=== PATIENT | female | born 1960 | race Two or more races ===

== ENCOUNTER 2020-04-01 13:59 | Outpatient (REF) | payer MEDICAID, SELFPAY ==
[2020-04-01 14:53] LABS: MANUAL DIFF FLAG NO
[2020-04-01 15:00] LABS: Basophils Percent Auto 0.5 % (0-2); Eosinophils Absolute Auto 0.3 X10*3/uL (0.0-0.4); Eosinophils Percent Auto 3.5 % (0-4); Hematocrit 48.1 % (37-47); Hemoglobin 15.5 g/dl (12.0-16.0); Imm Gran Abs Auto 0.03 X10*3/uL (0.00-0.03); Imm Gran Pct Auto 0.4 % (0.0-0.4); Lymphocytes Absolute Auto 2.9 X10*3/uL (1.2-4.9); Lymphocytes Percent Auto 35.2 % (20-40); Mean Corpuscular HGB Conc 32.2 g/dl (31.0-35.0); Mean Platelet Volume 11.2 fL (9.4-12.3); Monocytes Absolute Auto 0.4 X10*3/uL (0.1-1.2); Monocytes Percent Auto 4.7 % (2-11); Neutrophils Absolute Auto 4.6 X10*3/uL (2.0-8.3); Neutrophils Percent Auto 55.7 % (45-73); Platelet Count 266 X10*3/uL (160-400); Red Blood Count 5.17 X10*6/uL (4.20-5.50); Red Cell Distribution Width 12.6 % (11.0-16.0); White Blood Count 8.2 X10*3/uL (4.8-10.8)
[2020-04-01 15:26] LABS: Alanine Aminotransferase 20 U/L (0-31); Albumin Level 4.6 g/dL (3.5-5.0); Alkaline Phosphatase 97 U/L (39-117); Anion Gap 14 (12-20); Aspartate Amino Transferase 16 U/L (5-31); Bilirubin Total 0.7 mg/dL (0.0-1.0); Blood Urea Nitrogen 9 mg/dL (9-16); Calcium 9.4 mg/dL (8.4-10.2); Carbon Dioxide 25 mmol/L (22-29); Chloride 107 mmol/L (96-108); Cholesterol 116 mg/dL; Estimated Glomerular Filt Rate > 60; Glucose Random 98 mg/dL (60-115); Potassium 4.6 mmol/l (3.3-5.1); Sodium 141 mmol/L (135-145); Total Protein 7.4 g/dL (6.5-8.0)
[2020-04-01 15:46] LABS: Vitamin D 25-OH Total 12.7 ng/mL (>30)
== END 2020-04-01 14:00 | disposition home or self-care (01) ==
LOC: HO.LAB 13:59
PROVIDERS: PCP Internal Medicine; Visit Provider Internal Medicine
DX: E55.9 Vitamin D deficiency, unspecified (principal); K55.9 Vascular disorder of intestine, unspecified; M81.0 Age-related osteoporosis without current pathological fracture
CPT/HCPCS: 36415; 80053; 82306; 82465; 85025

== ENCOUNTER 2020-04-22 14:43 | Outpatient (REF) | payer MEDICAID, SELFPAY | END 2020-04-22 14:44 | disposition home or self-care (01) | LOC: HO.LNP 14:43 | PROVIDERS: Visit Provider Internal Medicine | DX: Z20.828 Contact with and (suspected) exposure to other viral communicable diseases (principal) | CPT/HCPCS: U0003 ==

== ENCOUNTER 2020-06-16 12:48 | Outpatient (REF) | payer MEDICAID, SELFPAY ==
--- NOTE | 2020-06-16 13:55 | XR_ITS ---
EXAMINATION: XR HIP, RIGHT CLINICAL INFORMATION: Right hip pain. COMPARISON: Pelvic study of 12/20/2017 and 06/06/2013. TECHNIQUE: 2 views of the right hip. FINDINGS: There is no evidence of acute fracture or dislocation of the right hip. There are again noted to be collar spurs as well as some joint space narrowing inferiorly and to a lesser extent superiorly. No femoral head collapse is seen. No destructive bony lesions noted. XR/XR hip RT min 2V IMPRESSION: Stable degenerative change of the right hip as described.
== END 2020-06-16 12:49 | disposition home or self-care (01) ==
LOC: HO.XRAY 12:48
PROVIDERS: PCP Internal Medicine; Visit Provider Nurse Practitioner Family
DX: M16.11 Unilateral primary osteoarthritis, right hip (principal); M25.551 Pain in right hip; M79.18 Myalgia, other site; M54.16 Radiculopathy, lumbar region
CPT/HCPCS: 73502; 99212

== ENCOUNTER 2020-07-06 07:56 | Outpatient (REF) | payer MEDICAID, SELFPAY ==
--- NOTE | 2020-07-06 08:02 | FL_ITS ---
EXAMINATION: XR FLUOROSCOPY WITH IMAGES CLINICAL INFORMATION: Sacroiliitis TECHNIQUE: Fluoroscopy time: 0.1 minutes DAP: 1.29 Gycm2 Images: 1 FINDINGS: A single intraoperative fluoroscopic image is submitted during injection of the right sacroiliac joint. Correlation with operative report. Evaluation is limited secondary to fluoroscopic technique. FL/FL guidance in treatment room IMPRESSION: Intra-operative fluoroscopic imaging provided by radiology during right sacroiliac joint injection. Please refer to operative note for further information.
== END 2020-07-06 07:57 | disposition home or self-care (01) ==
LOC: HO.RADIR 07:56
PROVIDERS: Visit Provider Anesthesiology
DX: M46.1 Sacroiliitis, not elsewhere classified (principal)
CPT/HCPCS: 27096; J3300; Q9967

== ENCOUNTER → 2020-08-09 10:03 | Outpatient (BNVA) | payer MEDICAID, SELFPAY | PROVIDERS: PCP Internal Medicine; Visit Provider Nurse Practitioner Family | DX: M16.11 Unilateral primary osteoarthritis, right hip (principal); M54.16 Radiculopathy, lumbar region; Z79.899 Other long term (current) drug therapy | CPT/HCPCS: 99212 ==

== ENCOUNTER 2020-08-17 15:36 | Outpatient (REF) | payer MEDICAID, SELFPAY ==
--- NOTE | ~2020-08-17 | MR_ITS ---
EXAMINATION: MR LUMBAR SPINE WITHOUT CONTRAST CLINICAL INFORMATION: Left shoulder pain, bilateral toe and right leg pain with symptoms for 6 years. COMPARISON: Lumbar spine x-ray 07/21/2016. TECHNIQUE: MRI of the lumbar spine was obtained using routine sequences without contrast. FINDINGS: There is normal lumbar lordosis. The vertebral heights, alignment and the disc heights are normal. The disc signal is preserved. There is no evidence of disc bulge, herniation or small stenosis at any of the disc levels. The neural foramina are patent at all disc levels. The bone marrow signal, intraspinal signal and paravertebral soft tissues are normal. There are ventral bridging osteophytes at L2-L3 and L4-L5 disc levels as visualized on the previous lumbar spine x-ray. Conus medullaris terminates at T12-L1 disc level and appears normal in morphology. Incidental finding of small 7 mm cyst midpole left kidney. MR/MR lumbar spine wo con IMPRESSION: No evidence of disc bulge, herniation or spinal stenosis. Mild ventral spondylosis L2-L3 and L4-L5 disc levels.
== END 2020-08-17 15:37 | disposition home or self-care (01) ==
LOC: HO.MRI 15:36
PROVIDERS: Visit Provider Anesthesiology
DX: M54.16 Radiculopathy, lumbar region (principal)
CPT/HCPCS: 72148

== ENCOUNTER → 2020-08-30 08:01 | Outpatient (BNVA) | payer MEDICAID, SELFPAY | PROVIDERS: PCP Internal Medicine; Visit Provider Nurse Practitioner Family | DX: M16.11 Unilateral primary osteoarthritis, right hip (principal); M54.16 Radiculopathy, lumbar region | CPT/HCPCS: 99212 ==

== ENCOUNTER 2020-09-14 06:29 | Outpatient (REF) | payer MEDICAID, SELFPAY ==
--- NOTE | ~2020-09-14 | FL_ITS ---
EXAMINATION: XR FLUOROSCOPY WITH IMAGES CLINICAL INFORMATION: M47.816 - Spondylosis without myelopathy or radiculopathy. Degenerative changes hips. COMPARISON: Radiograph pelvis 12/20/2017 TECHNIQUE: Fluoroscopy performed by Lo Steinberg NP. Fluoroscopy time: 0.2 minutes DAP: 1.76 Gycm2 Images: 1 FINDINGS: There is spinal needle overlying the superolateral aspect hip joint. There is intracapsular contrast demonstrated. FL/FL guidance in treatment room IMPRESSION: Fluoroscopy for pain management procedure.
== END 2020-09-14 06:30 | disposition home or self-care (01) ==
LOC: HO.RADIR 06:29
PROVIDERS: Visit Provider Anesthesiology
DX: M16.11 Unilateral primary osteoarthritis, right hip (principal); M47.816 Spondylosis without myelopathy or radiculopathy, lumbar region
CPT/HCPCS: 20610; 64493; 64494; 64495; J3300; Q9967

== ENCOUNTER → 2020-09-21 10:50 | Outpatient (BNVA) | payer MEDICAID, SELFPAY | PROVIDERS: PCP Internal Medicine; Visit Provider Nurse Practitioner Family | DX: M16.11 Unilateral primary osteoarthritis, right hip (principal); M54.16 Radiculopathy, lumbar region; M47.816 Spondylosis without myelopathy or radiculopathy, lumbar region | CPT/HCPCS: 99212 ==

== ENCOUNTER 2020-10-12 15:02 | Outpatient (REF) | payer MEDICAID, SELFPAY ==
--- NOTE | ~2020-10-12 | MM_ITS ---
EXAMINATION: MM SCREENING DIGITAL BREAST TOMOSYNTHESIS, BILATERAL CLINICAL INFORMATION: Screening. Asymptomatic. Benign right stereotactic biopsy 05/12/2014 (adenosis with numerous microcalcifications). The lifetime risk of breast cancer based on the Tyrer-Cuzick Model is 5%. COMPARISON: Mammography: 09/02/2018, 08/24/2017, 06/30/2016 TECHNIQUE: Digital breast tomosynthesis is performed in both the craniocaudal and mediolateral oblique views along with computer-aided detection (CAD). Synthesized 2D images are generated from the tomosynthesis. FINDINGS: There are scattered areas of fibroglandular density (ACR BI-RADS breast composition Category b). There are no significant masses, abnormal calcifications, or other abnormalities. There is biopsy clip marker right breast mid upper outer quadrant. The axilla and skin contours are unremarkable. MM/MM tomosynthesis screening BI IMPRESSION: No mammographic evidence of malignancy. ASSESSMENT: BI-RADS 1: Negative RECOMMENDATION: Routine annual mammography screening. This patient's information was entered into a reminder system with a target due date for their next mammogram.
== END 2020-10-12 15:03 | disposition home or self-care (01) ==
LOC: HO.MAMMO 15:02
PROVIDERS: PCP Internal Medicine; Visit Provider Internal Medicine
DX: Z12.31 Encounter for screening mammogram for malignant neoplasm of breast (principal)
CPT/HCPCS: 77063; 77067

== ENCOUNTER 2020-10-26 06:17 | Outpatient (REF) | payer MEDICAID, SELFPAY ==
--- NOTE | ~2020-10-26 | FL_ITS ---
EXAMINATION: XR FLUOROSCOPY WITH IMAGES CLINICAL INFORMATION: Spondylosis with myelopathy or radiculopathy. COMPARISON: Lumbar spine MRI dated 08/17/2020. TECHNIQUE: Fluoroscopy performed by Lo Steinberg. Fluoroscopy time: 0.8 minutes DAP: 7.15 Gycm2 FINDINGS: Intraoperative fluoroscopic images demonstrate perineural injections. FL/FL guidance in treatment room IMPRESSION: Intraoperative fluoroscopic radiographs.
== END 2020-10-26 06:18 | disposition home or self-care (01) ==
LOC: HO.RADIR 06:17
PROVIDERS: Visit Provider Anesthesiology
DX: M47.816 Spondylosis without myelopathy or radiculopathy, lumbar region (principal); M16.11 Unilateral primary osteoarthritis, right hip; M54.16 Radiculopathy, lumbar region
CPT/HCPCS: 64493; 64494; 64495; Q9967

== ENCOUNTER → 2020-11-02 13:25 | Outpatient (BNVA) | payer MEDICAID, SELFPAY | PROVIDERS: PCP Internal Medicine; Visit Provider Nurse Practitioner Family | CPT/HCPCS: 99212 ==

== ENCOUNTER 2020-11-05 12:02 | Outpatient (REF) | payer MEDICAID, SELFPAY ==
[2020-11-05 12:41] LABS: MANUAL DIFF FLAG NO
[2020-11-05 12:58] LABS: Basophils Absolute Auto 0.1 X10*3/uL (0.0-0.2); Basophils Percent Auto 0.5 % (0-2); Eosinophils Absolute Auto 0.3 X10*3/uL (0.0-0.4); Eosinophils Percent Auto 3.3 % (0-4); Hematocrit 44.8 % (37-47); Hemoglobin 14.4 g/dl (12.0-16.0); Imm Gran Abs Auto 0.03 X10*3/uL (0.00-0.03); Imm Gran Pct Auto 0.3 % (0.0-0.4); Lymphocytes Absolute Auto 3.5 X10*3/uL (1.2-4.9); Lymphocytes Percent Auto 38.1 % (20-40); Mean Corpuscular HGB Conc 32.1 g/dl (31.0-35.0); Mean Corpuscular Hemoglobin 29.8 pg (27.0-33.0); Mean Corpuscular Volume 92.6 fL (80-98); Mean Platelet Volume 10.9 fL (9.4-12.3); Monocytes Absolute Auto 0.4 X10*3/uL (0.1-1.2); Monocytes Percent Auto 4.8 % (2-11); Neutrophils Absolute Auto 4.8 X10*3/uL (2.0-8.3); Platelet Count 264 X10*3/uL (160-400); Red Blood Count 4.84 X10*6/uL (4.20-5.50); Red Cell Distribution Width 12.8 % (11.0-16.0); White Blood Count 9.1 X10*3/uL (4.8-10.8)
[2020-11-05 13:29] LABS: Anion Gap 13 (12-20); Blood Urea Nitrogen 11 mg/dL (9-16); C Reactive Protein 0.27 mg/dL (< or = 0.50); Calcium 9.5 mg/dL (8.4-10.2); Carbon Dioxide 26 mmol/L (22-29); Chloride 109 mmol/L (96-108); Estimated Glomerular Filt Rate > 60; Glucose Random 92 mg/dL (60-115); Potassium 4.7 mmol/L (3.3-5.1); Sodium 143 mmol/L (135-145)
== END 2020-11-05 12:03 | disposition home or self-care (01) ==
LOC: HO.LAB 12:02
PROVIDERS: PCP Internal Medicine; Visit Provider Internal Medicine
DX: M54.9 Dorsalgia, unspecified (principal); M16.11 Unilateral primary osteoarthritis, right hip; M85.80 Other specified disorders of bone density and structure, unspecified site
CPT/HCPCS: 36415; 80048; 85025; 86140

== ENCOUNTER 2020-11-08 11:08 | Outpatient (REF) | payer MEDICAID, SELFPAY ==
[2020-11-08 13:53] LABS: Amylase 38 U/L (28-100)
== END 2020-11-08 11:09 | disposition home or self-care (01) ==
LOC: HO.10HDL 11:08
PROVIDERS: Visit Provider Internal Medicine
DX: M79.605 Pain in left leg (principal)
CPT/HCPCS: 36415; 82150

== ENCOUNTER → 2020-12-31 15:15 | Outpatient (BNVA) | payer MEDICAID, SELFPAY | PROVIDERS: PCP Internal Medicine; Visit Provider Nurse Practitioner Family | DX: M47.816 Spondylosis without myelopathy or radiculopathy, lumbar region (principal); M46.1 Sacroiliitis, not elsewhere classified; M16.11 Unilateral primary osteoarthritis, right hip; M79.18 Myalgia, other site | CPT/HCPCS: 99212 ==

== ENCOUNTER 2021-03-08 06:26 | Outpatient (REF) | payer MEDICAID, SELFPAY ==
--- NOTE | ~2021-03-08 | FL_ITS ---
EXAMINATION: XR FLUOROSCOPY WITH IMAGES CLINICAL INFORMATION: Spondylosis without myelopathy or radiculopathy COMPARISON: None. TECHNIQUE: Fluoroscopy performed by Lo Steinberg NP. Fluoroscopy time: 0.7 minutes DAP: 4.7 Gycm2 Images: 8 FINDINGS: Images demonstrate needle placement and contrast injection adjacent to multiple bilateral lateral lumbar vertebral bodies. FL/FL guidance in treatment room IMPRESSION: Fluoroscopy guidance provided for pain management procedure of the spine.
== END 2021-03-08 06:27 | disposition home or self-care (01) ==
LOC: HO.RADIR 06:26
PROVIDERS: Visit Provider Anesthesiology
DX: M47.816 Spondylosis without myelopathy or radiculopathy, lumbar region (principal); M46.1 Sacroiliitis, not elsewhere classified; M16.11 Unilateral primary osteoarthritis, right hip; M79.18 Myalgia, other site
CPT/HCPCS: 64493; 64494; J3300; Q9967

== ENCOUNTER → 2021-04-13 10:59 | Outpatient (BNVA) | payer MEDICAID, SELFPAY | PROVIDERS: PCP Internal Medicine; Visit Provider Anesthesiology | DX: M47.816 Spondylosis without myelopathy or radiculopathy, lumbar region (principal); M46.1 Sacroiliitis, not elsewhere classified; M16.11 Unilateral primary osteoarthritis, right hip; M79.18 Myalgia, other site; M47.26 Other spondylosis with radiculopathy, lumbar region | CPT/HCPCS: 99212 ==

== ENCOUNTER 2021-05-31 05:59 | Outpatient (REF) | payer MEDICAID, SELFPAY ==
--- NOTE | ~2021-05-31 | FL_ITS ---
EXAMINATION: XR FLUOROSCOPY WITH IMAGES CLINICAL INFORMATION: M54.16 - Radiculopathy, lumbar region COMPARISON: Fluoroscopic spot views 03/08/2021 TECHNIQUE: Fluoroscopy performed by Dr. Johnson Ochoa. Fluoroscopy time: 0.3 minutes DAP: 2.38 Gycm2 Images: 2 FINDINGS: There are spinal needles overlying the outer right L3 and L4 neural foramen. There is contrast seen in the respective nerve sheaths. Transforaminal epidural extension is present. No visible vascular communication. There is metallic artifact again seen from a naval piercing overlying the spine. FL/FL guidance in treatment room IMPRESSION: Fluoroscopy for pain management procedures.
== END 2021-05-31 06:00 | disposition home or self-care (01) ==
LOC: HO.RADIR 05:59
PROVIDERS: Visit Provider Anesthesiology
DX: M47.26 Other spondylosis with radiculopathy, lumbar region (principal); M46.1 Sacroiliitis, not elsewhere classified; Z88.6 Allergy status to analgesic agent; M16.11 Unilateral primary osteoarthritis, right hip
CPT/HCPCS: J3300; Q9967

== ENCOUNTER → 2021-06-29 14:39 | Outpatient (BNVA) | payer MEDICAID, SELFPAY | PROVIDERS: PCP Internal Medicine; Visit Provider Anesthesiology | DX: M47.816 Spondylosis without myelopathy or radiculopathy, lumbar region (principal); M46.1 Sacroiliitis, not elsewhere classified; M16.11 Unilateral primary osteoarthritis, right hip; M79.18 Myalgia, other site; M47.26 Other spondylosis with radiculopathy, lumbar region | CPT/HCPCS: 99212 ==

== ENCOUNTER 2021-10-14 09:21 | Outpatient (REF) | payer MEDICAID, SELFPAY ==
--- NOTE | ~2021-10-14 | MM_ITS ---
EXAMINATION: MM SCREENING DIGITAL BREAST TOMOSYNTHESIS, BILATERAL CLINICAL INFORMATION: Screening. Asymptomatic. The lifetime risk of breast cancer based on the Tyrer-Cuzick Model is 6%. COMPARISON: Mammography: 10/12/2020, 09/02/2018, 08/24/2017 TECHNIQUE: Digital breast tomosynthesis is performed in both the craniocaudal and mediolateral oblique views along with computer-aided detection (CAD). Synthesized 2D images are generated from the tomosynthesis. FINDINGS: There are scattered areas of fibroglandular density (ACR BI-RADS breast composition Category b). There are no significant masses, abnormal calcifications, or other abnormalities. There is biopsy clip marker right breast mid upper outer quadrant again noted. The axilla and skin contours are unremarkable. There are no significant changes. MM/MM tomosynthesis screening BI IMPRESSION: No mammographic evidence of malignancy. ASSESSMENT: BI-RADS 1: Negative RECOMMENDATION: Routine annual mammography screening. This patient's information was entered into a reminder system with a target due date for their next mammogram.
== END 2021-10-14 09:22 | disposition home or self-care (01) ==
LOC: HO.MAMMO 09:21
PROVIDERS: PCP Internal Medicine; Visit Provider Internal Medicine
DX: Z12.31 Encounter for screening mammogram for malignant neoplasm of breast (principal)
CPT/HCPCS: 77063; 77067

== ENCOUNTER 2021-10-28 06:07 | Outpatient (REF) | payer MEDICAID, SELFPAY ==
--- NOTE | ~2021-10-28 | FL_ITS ---
EXAMINATION: XR FLUOROSCOPY WITH IMAGES CLINICAL INFORMATION: Spondylosis with radiculopathy. COMPARISON: None. TECHNIQUE: Fluoroscopy performed by Lo Steinberg. Fluoroscopy time: 0.5 minutes DAP: 0.973 Gy-cm2 Images: 5 FINDINGS: There are 5 digital images obtained with needle positioned inferior to right L3 and L4 pedicles with contrast opacifying the adjacent soft tissues. Visualized vertebral heights, alignment and disc heights are normal. FL/FL guidance in treatment room IMPRESSION: Fluoroscopy guidance was provided to the referrer for pain management.
== END 2021-10-28 06:08 | disposition home or self-care (01) ==
LOC: HO.RADIR 06:07
PROVIDERS: Visit Provider Internal Medicine
DX: M47.26 Other spondylosis with radiculopathy, lumbar region (principal)
CPT/HCPCS: 64483; 64484; J1100; Q9967

== ENCOUNTER → 2021-11-28 08:17 | Outpatient (BNVA) | payer MEDICAID, SELFPAY | PROVIDERS: PCP Internal Medicine; Visit Provider Anesthesiology | DX: M47.26 Other spondylosis with radiculopathy, lumbar region (principal); M46.1 Sacroiliitis, not elsewhere classified; M16.11 Unilateral primary osteoarthritis, right hip; M79.18 Myalgia, other site | CPT/HCPCS: 99212 ==

== ENCOUNTER 2022-05-04 10:36 | Outpatient (REF) | payer MEDICAID, SELFPAY ==
[2022-05-04 11:44] LABS: Influenza A PCR NEGATIVE (Negative); Influenza B PCR NEGATIVE (Negative); Resp Syncy Virus RNA Qual PCR NEGATIVE (Negative); SARS COV2 PCR INHOUSE NEGATIVE (Negative)
== END 2022-05-04 10:37 | disposition home or self-care (01) ==
LOC: HO.LNP 10:36
PROVIDERS: Visit Provider Internal Medicine
DX: Z20.822 Contact with and (suspected) exposure to COVID-19 (principal); R51.9 Headache, unspecified; R06.7 Sneezing
CPT/HCPCS: 0241U

== ENCOUNTER 2022-10-20 09:26 | Outpatient (REF) | payer MEDICAID, SELFPAY ==
--- NOTE | ~2022-10-20 | MM_ITS ---
EXAMINATION: MM SCREENING DIGITAL BREAST TOMOSYNTHESIS, BILATERAL CLINICAL INFORMATION: Screening. Asymptomatic. The lifetime risk of breast cancer based on the Tyrer-Cuzick Model is 6%. COMPARISON: Mammography: 10/14/2021, 10/12/2020, 09/02/2018 TECHNIQUE: Digital breast tomosynthesis is performed in both the craniocaudal and mediolateral oblique views along with computer-aided detection (CAD). Synthesized 2D images are generated from the tomosynthesis. Additional bilateral MLO views are provided. FINDINGS: There are scattered areas of fibroglandular density (ACR BI-RADS breast composition Category b). There are no significant masses, abnormal calcifications, or other abnormalities. Parenchymal pattern is similar to prior studies. There is no developing density or architectural abnormality. There is a biopsy clip marker again seen mid upper outer right breast. The axilla and skin contours are unremarkable. No significant changes. MM/MM tomosynthesis screening BI IMPRESSION: No mammographic evidence of malignancy. ASSESSMENT: BI-RADS 1: Negative RECOMMENDATION: Routine annual mammography screening. This patient's information was entered into a reminder system with a target due date for their next mammogram.
== END 2022-10-20 09:27 | disposition home or self-care (01) ==
LOC: HO.MAMMO 09:26
PROVIDERS: Visit Provider Internal Medicine
DX: Z12.31 Encounter for screening mammogram for malignant neoplasm of breast (principal)
CPT/HCPCS: 77063; 77067

== ENCOUNTER 2023-11-02 07:49 | Outpatient (REF) | payer MEDICAID, SELFPAY ==
--- NOTE | ~2023-11-02 | MM_ITS ---
EXAMINATION: MM SCREENING DIGITAL BREAST TOMOSYNTHESIS, BILATERAL CLINICAL INFORMATION: Screening. Asymptomatic. COMPARISON: Mammography: This study is compared with prior exams dating back to 2019. TECHNIQUE: Digital breast tomosynthesis is performed in both the craniocaudal and mediolateral oblique views along with computer-aided detection (CAD). Synthesized 2D images are generated from the tomosynthesis. FINDINGS: There are scattered areas of fibroglandular density (ACR BI-RADS breast composition Category b). There are no significant masses, abnormal calcifications, or other abnormalities. There is a tissue marker present in the upper outer quadrant of the right breast from prior benign percutaneous biopsy. MM/MM tomosynthesis screening BI IMPRESSION: No mammographic evidence of malignancy. ASSESSMENT: BI-RADS BI-RADS 2 - Benign Findings RECOMMENDATION: Routine annual mammography screening. 1 year F/U This examination should not preclude the clinical evaluation of a suspicious palpable abnormality. This patient's information was entered into a reminder system with a target due date for their next mammogram.
== END 2023-11-02 07:50 | disposition home or self-care (01) ==
LOC: HO.MAMMO 07:49
PROVIDERS: PCP Internal Medicine; Visit Provider Internal Medicine
DX: Z12.31 Encounter for screening mammogram for malignant neoplasm of breast (principal)
CPT/HCPCS: 77063; 77067

== ENCOUNTER → 2023-11-02 08:30 | Outpatient (BNV) | payer MEDICAID, SELFPAY | PROVIDERS: PCP Internal Medicine; Visit Provider Radiology Diagnostic Radiology | DX: Z12.31 Encounter for screening mammogram for malignant neoplasm of breast (principal) | CPT/HCPCS: 77063; 77067 ==

== ENCOUNTER 2023-11-07 08:18 | Outpatient (AMB) | payer MEDICAID, SELFPAY ==
--- NOTE | 2023-11-07 08:21 | MHC.OFFVIS ---
Vital Signs 11/07/23 08:27 Height 5 ft 1 in Weight 139 lb 2 oz BMI 26.3 BP 144/94 H Blood Pressure Location Rt brachial Position Sitting Respiration 16 Pulse 69 Pulse Source Pulse Oximeter Pulse Oximetry (%) 96 Oxygen Delivery Method Room Air Intake Visit Reasons: Back pain Intake Note: Patient comes in for back pain. Reports pain 8-9/10. Allergies aspirin Adverse Reaction (Verified 11/07/23 08:27) rectal bleeding HPI Comments Details: Myrtle is back in my office after significant period of absence. She received in 2021 transforaminal epidural steroid injection L3-L4 and L4-5 on the right. She is suffering from radiculopathy of the lumbar spine. This injection was very instrumental to help her pain. She reported excellent pain relief 1 month after procedure for the follow-up. She reported another 3 months of the pain relief after the therefore the total pain relief was up to 4 months. However to that she failed to schedule yet another appointment with us to schedule the injection. Now her pain is unbearable and it is 8 to 9/10. She requests me to repeat this procedure. I will schedule her as soon as possible. Prior: Very pleasant 61 years old female who is in my office under observation for significant period of time. We started her treatment here with the diagnostic MBB which was very effective for treating her pain. However following therapeutic MBB did not result in good pain relief. MRI was obtained and some minimal changes were found at L3-L4 L4-5 levels. The patient was offered in May of 2021 therapeutic transforaminal epidural steroid injection. She reported that injection done in May of 2021 resulted in prolonging continuous pain relieve until September. After the pain got returned she was scheduled for yet another transforaminal epidural steroid injection L3-L4 L4-5 on the right with Dr. Tobias. Unfortunately the patient reported minimal pain relief for 2 days only. This injection happened in October 28. She was given today an option to perform sprint procedure trial in the order to attempt to alleviate her pain. She said that this sort of approaches little bit to technical for her and she would not want to get this done. She would like to repeat L3-L4 L4-5 transforaminal epidural steroid injection on the right with me I explained to her that it is possible only after January 28. Meanwhile to temporize her pain I will start her on Celebrex moderate doses PFSH Medical History (System 05/04/21 @ 10:51 by Danica Obrien) Other spondylosis with radiculopathy, lumbar region Review of Systems Const All systems reviewed & are unremarkable except as noted in HPI and below ENT Reports Normal hearing present Neuro Reports Normal hearing present, Denies Abnormal speech present and Denies confusion Psych Denies confusion Physical Exam Vital Signs: Last Vital Signs Pulse 69 11/07/23 08:27 Resp 16 11/07/23 08:27 BP 144/94 H 11/07/23 08:27 Pulse Ox 96 11/07/23 08:27 Oxygen Delivery Method Room Air 11/07/23 08:27 BMI result Body Mass Index 26.3 Const General: cooperative, healthy appearing, no acute distress and alert; No confusion Nutritional Appearance: average body habitus Orientation/consciousness: patient oriented x3 and No confusion Limitations: no limitations HEENT Head: Yes normocephalic and Yes atraumatic Ears: hearing grossly normal bilaterally Eyes General: appearance normal, both eyes and all related structures Eyelids: Yes eyelids normal Pupils: Equal, round and reactive pupils present EOM: EOMs intact bilaterally Neck Neck: Yes normal visual inspection and Yes no JVD Resp Effort & Inspection: normal respiratory effort, able to speak in complete sentences and no audible wheezes Cardio Jugular venous distension: no JVD Back/Spine/Pelvis Other: SLR is positive on pain increase on the right. She points out to shooting pain in the location of between the 1st and 2nd toe on the right. Valsalva maneuver is positive for pain increase. Coughing and sneezing increase her pain in the back and results in shooting pain down the lower extremity on the right. Neuro General: patient oriented x3 and No confusion Cranial nerves: Yes Equal, round and reactive pupils present and Yes Normal hearing present Speech: No Abnormal speech present Assessment & Plan Assessment & Plan (1) Spondylosis of lumbar spine: Code(s): M47.816 - Spondylosis without myelopathy or radiculopathy, lumbar region Category: Medical (2) Sacroiliitis, not elsewhere classified: Code(s): M46.1 - Sacroiliitis, not elsewhere classified Category: Medical (3) Osteoarthritis of right hip: Code(s): M16.11 - Unilateral primary osteoarthritis, right hip Category: Medical Qualifiers: Osteoarthritis type: primary Qualified Code(s): M16.11 - Unilateral primary osteoarthritis, right hip (4) Myofascial pain syndrome, cervical: Code(s): M79.18 - Myalgia, other site Category: Medical (5) Other spondylosis with radiculopathy, lumbar region: Code(s): M47.26 - Other spondylosis with radiculopathy, lumbar region Category: Medical Plan I will schedule this patient for L3-L4 L4-5 transforaminal epidural steroid injection. Her initial results of the transforaminal epidural steroid injections were very promising. She had up to 1 year of pain relief on the 1st injection she had up to 4 a month of the pain relief after 2nd injection. I will schedule her for transforaminal pending insurance approval as soon as possible. She will be seen for the follow-up 1 month after the procedure. Coding Level of Care Code Est Pt Level 3 (20668) Diagnoses Spondylosis of lumbar spine M47.816 Sacroiliitis, not elsewhere classified M46.1 Primary osteoarthritis of right hip M16.11 Osteoarthritis type: primary Myofascial pain syndrome, cervical M79.18 Other spondylosis with radiculopathy, lumbar region M47.26
[2023-11-07 08:27] VITALS: BP 144/94; PULSE 69; RESP 16; O2SAT 96; BMI 26.3
== END 2023-11-07 08:39 | disposition home or self-care (01) ==
PROVIDERS: PCP Internal Medicine; Supervising Provider Internal Medicine; Visit Provider Anesthesiology
DX: M47.816 Spondylosis without myelopathy or radiculopathy, lumbar region (principal); M46.1 Sacroiliitis, not elsewhere classified; M16.11 Unilateral primary osteoarthritis, right hip; M79.18 Myalgia, other site; M47.26 Other spondylosis with radiculopathy, lumbar region
CPT/HCPCS: 99213

== ENCOUNTER → 2023-11-07 08:18 | Outpatient (BNVA) | payer MEDICAID, SELFPAY | PROVIDERS: PCP Internal Medicine; Visit Provider Anesthesiology | DX: M47.26 Other spondylosis with radiculopathy, lumbar region (principal); M46.1 Sacroiliitis, not elsewhere classified; M16.11 Unilateral primary osteoarthritis, right hip; M79.18 Myalgia, other site | CPT/HCPCS: 99212 ==

== ENCOUNTER 2023-12-18 07:23 | Outpatient (REF) | payer MEDICAID, SELFPAY | END 2023-12-18 07:24 | disposition home or self-care (01) | LOC: CF 07:23 | PROVIDERS: Visit Provider Anesthesiology | DX: M54.16 Radiculopathy, lumbar region (principal); Z53.9 Procedure and treatment not carried out, unspecified reason | CPT/HCPCS: J3301; Q9967 ==

== ENCOUNTER 2024-01-01 09:38 | Outpatient (REF) | payer MEDICAID, SELFPAY ==
[2024-01-01 11:19] LABS: C Reactive Protein 0.32 mg/dL (< or = 0.50)
[2024-01-01 11:37] LABS: Erythrocyte Sedimentation Rate 8 MM/HR (0-20)
== END 2024-01-01 09:39 | disposition home or self-care (01) ==
LOC: HO.LAB 09:38
PROVIDERS: PCP Internal Medicine; Visit Provider Registered Nurse
DX: G44.209 Tension-type headache, unspecified, not intractable (principal)
CPT/HCPCS: 36415; 85652; 86140

== ENCOUNTER 2024-04-08 06:12 | Outpatient (REF) | payer MEDICAID, SELFPAY | END 2024-04-08 06:13 | disposition home or self-care (01) | LOC: CF 06:12 | PROVIDERS: Visit Provider Anesthesiology | DX: M54.16 Radiculopathy, lumbar region (principal); M47.816 Spondylosis without myelopathy or radiculopathy, lumbar region | CPT/HCPCS: 64483; 64484; J2003; J3301; Q9967 ==

== ENCOUNTER 2024-04-08 08:06 | Outpatient (AMB) | payer MEDICAID, SELFPAY ==
[2024-04-08 08:25] VITALS: BP 174/79; PULSE 72; RESP 17; O2SAT 97
--- NOTE | 2024-04-08 08:25 | MHC.OFFVIS ---
Vital Signs 04/08/24 08:25 04/08/24 09:04 BP 174/79 H 172/88 H Blood Pressure Location Rt brachial Rt brachial Position Sitting Sitting Respiration 17 17 Pulse 72 69 Pulse Source Pulse Oximeter Pulse Oximeter Pulse Oximetry (%) 97 98 Oxygen Delivery Method Room Air Room Air Comment Pre-op Post-op Intake Visit Reasons: RIGHT L3, L4 AND L4, L5 TFESI Allergies aspirin Adverse Reaction (Verified 04/08/24 08:26) rectal bleeding Medication List - Last Reconciled 04/08/24 by Rosa Seals acetaminophen (Tylenol) 650 mg PO QID PRN albuterol sulfate 90 mcg/actuation (ProAir HFA) 2 puffs PO Q4H PRN amitriptyline 100 mg PO BEDTIME cyclobenzaprine 5 mg PO TID PRN PFSH Medical History (System 05/04/21 @ 10:51 by Danica Obrien) Other spondylosis with radiculopathy, lumbar region Physical Exam Vital Signs: Last Vital Signs Pulse 69 04/08/24 09:04 Resp 17 04/08/24 09:04 BP 172/88 H 04/08/24 09:04 Pulse Ox 98 04/08/24 09:04 Oxygen Delivery Method Room Air 04/08/24 09:04 Assessment & Plan Assessment & Plan (1) Lumbar radiculopathy, right: Code(s): M54.16 - Radiculopathy, lumbar region Category: Medical (2) Spondylosis of lumbar spine: Code(s): M47.816 - Spondylosis without myelopathy or radiculopathy, lumbar region Category: Medical Plan Right L3-L4 and L4-5 Transforaminal epidural steroid injection Informed consent was thoroughly explained to the patient before the procedure. The patient came to the operating room. She was positioned prone on operating table with a pillow under her abdomen. Time-out was performed delineating correct site and side of the procedure, nature of the injection, name and date of of the patient. The lower back of the patient was prepped with ChloraPrep and draped with sterile utility towels. C-arm was brought over the operating field and sq picture of L3 vertebra was demonstrated on the screen. The right side was chosen as the side of the injection. Tilting machine ipsilateral to the right at the level of L3 the most prominent picture of the pedicle on the right was demonstrated on the screen. 3 mm below the most lowest point of the pedicle projection to the skin small amount of lidocaine 1% was injected to anesthetize the skin. After that 5 in 22 gauge Quincke point needle was inserted through the skin wheal and was advanced to were the L3-L4 foramina on anterior posterior, lateral and oblique views intermittently. When the needle entered foramina on AP view When tip of the needle entered foramina projection on AP view injection of the contrast was performed demonstrating epidural and perineural spread of the contrast. After that injection of the treatment medicine 2 cc of preservative-free lidocaine 1% mixed with Kenalog 40 mg was injected into the foramina. No intrathecal and no intravascular spread of the contrast was noted. The needle was removed the procedure was repeated on right L4-5 level in the same very fashion. Upon completion of the procedure needle was removed and sterile Band-Aid was applied. Patient tolerated the procedure well. Orders: Orders FL guidance in treatment room Today M54.16 - Radiculopathy, lumbar region Coding Level of Care Code Procedure Only Diagnoses Lumbar radiculopathy, right M54.16 Spondylosis of lumbar spine M47.816
[2024-04-08 09:04] VITALS: BP 172/88; PULSE 69; RESP 17; O2SAT 98
== END 2024-04-08 09:03 | disposition home or self-care (01) ==
PROVIDERS: PCP Internal Medicine; Visit Provider Anesthesiology
DX: M54.16 Radiculopathy, lumbar region (principal); M47.816 Spondylosis without myelopathy or radiculopathy, lumbar region
CPT/HCPCS: 64483; 64484

== ENCOUNTER 2024-04-28 08:17 | Outpatient (AMB) | payer MEDICAID, SELFPAY ==
--- NOTE | 2024-04-28 08:18 | A.OFFVIS_ITS ---
Vital Signs 04/28/24 08:20 Height 5 ft 1 in Weight 143 lb BMI 27.0 BP 174/83 H Blood Pressure Location Lt brachial Position Sitting Respiration 15 Pulse 69 Pulse Source Pulse Oximeter Pulse Oximetry (%) 97 Oxygen Delivery Method Room Air Intake Visit Reasons: RIGHT L3, L4 AND L4, L5 TFESI/04/08/24 Allergies aspirin Adverse Reaction (Verified 04/28/24 08:21) rectal bleeding Medication List - Last Reconciled 04/28/24 by Terrie Aranda LPN acetaminophen (Tylenol) 650 mg PO QID PRN albuterol sulfate 90 mcg/actuation (ProAir HFA) 2 puffs PO Q4H PRN amitriptyline 100 mg PO BEDTIME cyclobenzaprine 5 mg PO TID PRN HPI Comments Details: Myrtle is back in my office after repeat transforaminal epidural steroid injection L3-L4 L4-5 on the right. The injection was performed on 04/08/2024. She reported excellent immediate pain relief after the procedure. She reported excellent mobility and activities of daily living. Unfortunately recently she fell and she started to feel her pain again. Most likely it is again her nerves became trapped in the foraminal stenotic area. We need to wait another 2-1/2 months to schedule her for another injection. I also will prescribe her gabapentin 300 mg t.i.d. to help her pain. I also briefly discussed with her treatment of her pain with spinal cord stimulator however she is not very fond of this idea. Prior: She received in 2021 transforaminal epidural steroid injection L3-L4 and L4-5 on the right. She is suffering from radiculopathy of the lumbar spine. This injection was very instrumental to help her pain. She reported excellent pain relief 1 month after procedure for the follow-up. She reported another 3 months of the pain relief after the therefore the total pain relief was up to 4 months. However to that she failed to schedule yet another appointment with us to schedule the injection. Now her pain is unbearable and it is 8 to 9/10. She requests me to repeat this procedure. I will schedule her as soon as possible. Prior: Very pleasant 61 years old female who is in my office under observation for significant period of time. We started her treatment here with the diagnostic MBB which was very effective for treating her pain. However following therapeutic MBB did not result in good pain relief. MRI was obtained and some minimal changes were found at L3-L4 L4-5 levels. The patient was offered in May of 2021 therapeutic transforaminal epidural steroid injection. She reported that injection done in May of 2021 resulted in p rolonging continuous pain relieve until September. After the pain got returned she was scheduled for yet another transforaminal epidural steroid injection L3-L4 L4-5 on the right with Dr. Tobias. Unfortunately the patient reported minimal pain relief for 2 days only. This injection happened in October 28. She was given today an option to perform sprint procedure trial in the order to attempt to alleviate her pain. She said that this sort of approaches little bit to technical for her and she would not want to get this done. She would like to repeat L3-L4 L4-5 transforaminal epidural steroid injection on the right with me I explained to her that it is possible only after January 28. Meanwhile to temporize her pain I will start her on Celebrex moderate doses [facility] Medical History (System 05/04/21 @ 10:51 by Danica Obrien) Other spondylosis with radiculopathy, lumbar region Review of Systems Const All systems reviewed & are unremarkable except as noted in HPI and below ENT Reports Normal hearing present Neuro Reports Normal hearing present, Denies Abnormal speech present and Denies confusion Psych Denies confusion Physical Exam Vital Signs: Last Vital Signs Pulse 69 04/28/24 08:20 Resp 15 04/28/24 08:20 BP 174/83 H 04/28/24 08:20 Pulse Ox 97 04/28/24 08:20 Oxygen Delivery Method Room Air 04/28/24 08:20 BMI result Body Mass Index 27.0 Const General: cooperative, healthy appearing, no acute distress and alert; No confusion Nutritional Appearance: average body habitus Orientation/consciousness: patient oriented x3 and No confusion Limitations: no limitations HEENT Head: Yes normocephalic and Yes atraumatic Ears: hearing grossly normal bilaterally Eyes General: appearance normal, both eyes and all related structures Eyelids: Yes eyelids normal Pupils: Equal, round and reactive pupils present EOM: EOMs intact bilaterally Neck Neck: Yes normal visual inspection and Yes no JVD Resp Effort & Inspection: normal respiratory effort, able to speak in complete sentences and no audible wheezes Cardio Jugular venous distension: no JVD Back/Spine/Pelvis Other: SLR is positive on pain increase on the right. She points out to shooting pain in the location of between the 1st and 2nd toe on the right. Valsalva maneuver is positive for pain increase. Coughing and sneezing increase her pain in the back and results in shooting pain down the lower extremity on the right. Neuro General: patient oriented x3 and No confusion Cranial nerves: Yes Equal, round and reactive pupils present and Yes Normal hearing present Speech: No Abnormal speech present Assessment & Plan Assessment & Plan (1) Spondylosis of lumbar spine: Code(s): M47.816 - Spondylosis without myelopathy or radiculopathy, lumbar region Category: Medical (2) Sacroiliitis, not elsewhere classified: Code(s): M46.1 - Sacroiliitis, not elsewhere classified Category: Medical (3) Osteoarthritis of right hip: Code(s): M16.11 - Unilateral primary osteoarthritis, right hip Category: Medical Qualifiers: Osteoarthritis type: primary Qualified Code(s): M16.11 - Unilateral primary osteoarthritis, right hip (4) Myofascial pain syndrome, cervical: Code(s): M79.18 - Myalgia, other site Category: Medical (5) Other spondylosis with radiculopathy, lumbar region: Code(s): M47.26 - Other spondylosis with radiculopathy, lumbar region Category: Medical Plan Excellent results of L3-L4 L4-5 transforaminal epidural steroid injection which was performed on 04/08/2024. Unfortunately patient felt recently and her pain returned. We can schedule her repeat procedure in 2-1/2 month. Treatment with SCS was discussed briefly patient is not eager to go for this procedure. Her initial results of the transforaminal epidural steroid injections were very promising. She had up to 1 year of pain relief on the 1st injection she had up to 4 a month of the pain relief after 2nd injection. I will schedule her for transforaminal pending insurance approval as soon as possible. I will prescribe her gabapentin 300 mg t.i.d. to help her pain meanwhile. Medications: New gabapentin 300 mg PO TID 30 days 90 caps 8RF Patient Instructions: I here by testify that I spent 33 minutes in conversation with this patient as well as planning her care and organizing this note. Coding Level of Care Code Est Pt Level 4 (08350) Diagnoses Spondylosis of lumbar spine M47.816 Sacroiliitis, not elsewhere classified M46.1 Primary osteoarthritis of right hip M16.11 Osteoarthritis type: primary Myofascial pain syndrome, cervical M79.18 Other spondylosis with radiculopathy, lumbar region M47.26
[2024-04-28 08:20] VITALS: BP 174/83; PULSE 69; RESP 15; O2SAT 97; BMI 27.0
== END 2024-04-28 08:27 | disposition home or self-care (01) ==
PROVIDERS: PCP Internal Medicine; Visit Provider Anesthesiology
DX: M47.816 Spondylosis without myelopathy or radiculopathy, lumbar region (principal); M46.1 Sacroiliitis, not elsewhere classified; M16.11 Unilateral primary osteoarthritis, right hip; M79.18 Myalgia, other site; M47.26 Other spondylosis with radiculopathy, lumbar region
CPT/HCPCS: 99214

== ENCOUNTER → 2024-04-28 08:17 | Outpatient (BNVA) | payer MEDICAID, SELFPAY | PROVIDERS: PCP Internal Medicine; Visit Provider Anesthesiology | DX: M47.816 Spondylosis without myelopathy or radiculopathy, lumbar region (principal); M46.1 Sacroiliitis, not elsewhere classified; M16.11 Unilateral primary osteoarthritis, right hip; M79.18 Myalgia, other site; M47.26 Other spondylosis with radiculopathy, lumbar region | CPT/HCPCS: 99212 ==

== ENCOUNTER 2024-07-15 06:10 | Outpatient (REF) | payer MEDICAID, SELFPAY ==
--- NOTE | ~2024-07-15 | FL_ITS ---
EXAMINATION: FL GUIDANCE ONLY HISTORY: M54.16 - Radiculopathy, lumbar region COMPARISON: None available. TECHNIQUE: Fluoroscopy time: 0.6 minutes. Cumulative Dose: 7.22 mGy. DAP: 0.125 mGym2 Images: 2. FINDINGS: Fluoroscopic spot films of the lumbar spine in the AP projection demonstrate needles and contrast material in the regions of the right L3-4 and L4-5 facet joints. FL/FL guidance in treatment room IMPRESSION: Fluoroscopy during procedure. Please see procedure report for additional information. Electronically signed by: Vernon Hagen MD 07/15/2024 10:15 AM EVELIA
== END 2024-07-15 06:11 | disposition home or self-care (01) ==
LOC: CF 06:10
PROVIDERS: Visit Provider Anesthesiology
DX: M47.26 Other spondylosis with radiculopathy, lumbar region (principal); M46.1 Sacroiliitis, not elsewhere classified; M16.11 Unilateral primary osteoarthritis, right hip; M79.18 Myalgia, other site
CPT/HCPCS: 64483; 64484; J2003; J3301; Q9967

== ENCOUNTER 2024-07-30 12:41 | Outpatient (AMB) | payer MEDICAID, SELFPAY ==
[2024-07-30 12:51] VITALS: BP 181/80; PULSE 75; RESP 16; O2SAT 97; BMI 29.1
--- NOTE | 2024-07-30 12:51 | MHC.OFFVIS ---
Vital Signs 07/30/24 12:51 Height 5 ft 1 in Weight 154 lb BMI 29.1 BP 181/80 H Blood Pressure Location Lt brachial Position Sitting Respiration 16 Pulse 75 Pulse Source Pulse Oximeter Pulse Oximetry (%) 97 Oxygen Delivery Method Room Air Intake Visit Reasons: RIGHT L3, L4 AND L4, L5 TFESI Official Greeter Required: No Allergies aspirin Adverse Reaction (Verified 07/30/24 12:52) rectal bleeding Medication List - Last Reconciled 07/30/24 by Terrie Aranda LPN acetaminophen (Tylenol) 650 mg PO QID PRN albuterol sulfate 90 mcg/actuation (ProAir HFA) 2 puffs PO Q4H PRN amitriptyline 100 mg PO BEDTIME cyclobenzaprine 5 mg PO TID PRN gabapentin 300 mg PO TID 30 days HPI Comments Details: Myrtle is here today to discuss the results of repeat transforaminal epiduralsteroid injection which was performed on 07/15/2024. She reports good pain relief after the procedure. She reports that pain in the back is not bothering her anymore. However she reports pain in the area of the posterior chest in the projection of bilateral 11 ribs approximately with radiation into the anterior chest under her breasts. She reports pain increased with her attempting to take a deep breath. 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 I offered her to perform bilateral rib 11 intercostal injection. I will schedule it as soon as possible. Prior to this procedure patient had transforaminal epidural steroid injection on 04/08/2024 with good pain results however she fell in June and injured her mid and upper back as well as lower back. Also possibility exists on her receiving compression fracture of the thoracic vertebra. I will send her for the x-ray of the thoracic spine. Prior: She received in 2021 transforaminal epidural steroid injection L3-L4 and L4-5 on the right. She is suffering from radiculopathy of the lumbar spine. This injection was very instrumental to help her pain. She reported excellent pain relief 1 month after procedure for the follow-up. She reported another 3 months of the pain relief after the therefore the total pain relief was up to 4 months. However to that she failed to schedule yet another appointment with us to schedule the injection. Now her pain is unbearable and it is 8 to 9/10. She requests me to repeat this procedure. I will schedule her as soon as possible. Prior: Very pleasant 61 years old female who is in my office under observation for significant period of time. We started her treatment here with the diagnostic MBB which was very effective for treating her pain. However following therapeutic MBB did not result in good pain relief. MRI was obtained and some minimal changes were found at L3-L4 L4-5 levels. The patient was offered in May of 2021 therapeutic transforaminal epidural steroid injection. She reported that injection done in May of 2021 resulted in prolonging continuous pain relieve until September. After the pain got returned she was scheduled for yet another transforaminal epidural steroid injection L3-L4 L4-5 on the right with Dr. Tobias. Unfortunately the patient reported minimal pain relief for 2 days only. This injection happened in October 28. She was given today an option to perform sprint procedure trial in the order to attempt to alleviate her pain [facility] Medical History (Updated 07/30/24 @ 13:15 by Johnson Ochoa MD) Other spondylosis with radiculopathy, lumbar region Review of Systems Const All systems reviewed & are unremarkable except as noted in HPI and below ENT Reports Normal hearing present Neuro Reports Normal hearing present, Denies Abnormal speech present and Denies confusion Psych Denies confusion Physical Exam Vital Signs: Last Vital Signs Pulse 75 07/30/24 12:51 Resp 16 07/30/24 12:51 BP 181/80 H 07/30/24 12:51 Pulse Ox 97 07/30/24 12:51 Oxygen Delivery Method Room Air 07/30/24 12:51 BMI result Body Mass Index 29.1 Const General: cooperative, healthy appearing, no acute distress and alert; No confusion Nutritional Appearance: average body habitus Orientation/consciousness: patient oriented x3 and No confusion Limitations: no limitations HEENT Head: Yes normocephalic and Yes atraumatic Ears: hearing grossly normal bilaterally Eyes General: appearance normal, both eyes and all related structures Eyelids: Yes eyelids normal Pupils: Equal, round and reactive pupils present EOM: EOMs intact bilaterally Neck Neck: Yes normal visual inspection and Yes no JVD Chest Other: Tenderness on palpation in the projection of approximately both 11 ribs bilaterally. tenderness on palpation in projection of approximately T11 vertebral body. Pain increases with the patient taking slow deep breath. Resp Effort & Inspection: normal respiratory effort, able to speak in complete sentences and no audible wheezes Cardio Jugular venous distension: no JVD Back/Spine/Pelvis Other: SLR is positive on pain increase on the right. She points out to shooting pain in the location of between the 1st and 2nd toe on the right. Valsalva maneuver is positive for pain increase. Coughing and sneezing increase her pain in the back and results in shooting pain down the lower extremity on the right. Neuro General: patient oriented x3 and No confusion Cranial nerves: Yes Equal, round and reactive pupils present and Yes Normal hearing present Speech: No Abnormal speech present Results Reviewed Results Reviewed: LUMBAR SPINE MRI 2020 FINDINGS: There is normal lumbar lordosis. The vertebral heights, alignment and the disc heights are normal. The disc signal is preserved. There is no evidence of disc bulge, herniation or small stenosis at any of the disc levels. The neural foramina are patent at all disc levels. The bone marrow signal, intraspinal signal and paravertebral soft tissues are normal. There are ventral bridging osteophytes at L2-L3 and L4-L5 disc levels as visualized on the previous lumbar spine x-ray. Conus medullaris terminates at T12-L1 disc level and appears normal in morphology. Incidental finding of small 7 mm cyst midpole left kidney. IMPRESSION: No evidence of disc bulge, herniation or spinal stenosis. Mild ventral spondylosis L2-L3 and L4-L5 disc levels. Assessment & Plan Assessment & Plan (1) Spondylosis of lumbar spine: Code(s): M47.816 - Spondylosis without myelopathy or radiculopathy, lumbar region Category: Medical (2) Sacroiliitis, not elsewhere classified: Code(s): M46.1 - Sacroiliitis, not elsewhere classified Category: Medical (3) Osteoarthritis of right hip: Code(s): M16.11 - Unilateral primary osteoarthritis, right hip Category: Medical Qualifiers: Osteoarthritis type: primary Qualified Code(s): M16.11 - Unilateral primary osteoarthritis, right hip (4) Myofascial pain syndrome, cervical: Code(s): M79.18 - Myalgia, other site Category: Medical (5) Other spondylosis with radiculopathy, lumbar region: Code(s): M47.26 - Other spondylosis with radiculopathy, lumbar region Category: Medical (6) Compression fracture of body of thoracic vertebra: Code(s): S22.000A - Wedge compression fracture of unspecified thoracic vertebra, initial encounter for closed fracture Category: Medical Plan I will schedule this patient for intercostal bilateral rib 11 injection. At the same time I will send her for x-ray of the thoracic spine to evaluate her thoracic spine today. Possibility exists that she fractured 1 of her thoracic vertebra and that is why she feels this pain with pain increase while she is taking deep breath. Orders: Orders XR thoracic spine 3V Today S22.000A - Wedge compression fracture of unspecified thoracic vertebra, initial encounter for closed fracture Patient Instructions: I here by testify that I spent 30 minutes in conversation with this patient as well as planning her care and organizing this note. Coding Level of Care Code Est Pt Level 4 (00811) Diagnoses Spondylosis of lumbar spine M47.816 Sacroiliitis, not elsewhere classified M46.1 Primary osteoarthritis of right hip M16.11 Osteoarthritis type: primary Myofascial pain syndrome, cervical M79.18 Other spondylosis with radiculopathy, lumbar region M47.26 Compression fracture of body of thoracic vertebra S22.000A
== END 2024-07-30 13:06 | disposition home or self-care (01) ==
PROVIDERS: PCP Internal Medicine; Visit Provider Anesthesiology
DX: M47.816 Spondylosis without myelopathy or radiculopathy, lumbar region (principal); M46.1 Sacroiliitis, not elsewhere classified; M16.11 Unilateral primary osteoarthritis, right hip; M79.18 Myalgia, other site; M47.26 Other spondylosis with radiculopathy, lumbar region; S22.000A Wedge compression fracture of unspecified thoracic vertebra, initial encounter for closed fracture
CPT/HCPCS: 99214

== ENCOUNTER 2024-07-30 12:41 | Outpatient (REF) | payer MEDICAID, SELFPAY ==
--- NOTE | ~2024-07-30 | XR_ITS ---
EXAMINATION: XR THORACIC SPINE CLINICAL INFORMATION: S22.000A - Wedge compression fracture of unspecified thoracic vertebra, ... COMPARISON: None available. TECHNIQUE: 3 views of the thoracic spine were obtained. FINDINGS: There is maintained thoracic kyphosis. The vertebral heights, alignment and the disc heights are normal. There is mild ventral and right lateral spondylosis throughout lumbar spine. No aggressive lytic or sclerotic process seen. The soft tissues are normal. XR/XR thoracic spine 3V IMPRESSION: No acute fracture or dislocation. Mild levoscoliosis lumbar spine with lateral and ventral spondylosis lower dorsal spine. Electronically signed by: Osito De Leon MD 07/31/2024 07:52 AM EST
== END 2024-07-30 12:42 | disposition home or self-care (01) ==
LOC: HO.XRAY 12:41
PROVIDERS: PCP Internal Medicine; Visit Provider Anesthesiology
DX: S22.000A Wedge compression fracture of unspecified thoracic vertebra, initial encounter for closed fracture (principal); M47.816 Spondylosis without myelopathy or radiculopathy, lumbar region; M46.1 Sacroiliitis, not elsewhere classified; M16.11 Unilateral primary osteoarthritis, right hip; M79.18 Myalgia, other site; M47.26 Other spondylosis with radiculopathy, lumbar region
CPT/HCPCS: 72072; 99212

== ENCOUNTER → 2024-07-30 13:21 | Outpatient (BNV) | payer MEDICAID, SELFPAY | PROVIDERS: PCP Internal Medicine; Visit Provider Radiology Diagnostic Radiology | DX: M47.894 Other spondylosis, thoracic region (principal) | CPT/HCPCS: 72072 ==

== ENCOUNTER 2024-08-26 10:13 | Outpatient (AMB) | payer MEDICAID, SELFPAY ==
--- NOTE | 2024-08-26 10:18 | A.OFFVIS_ITS ---
Intake Visit Reasons: urinary incontinence/ nocturia Intake Note: Patient is present for URINARY ONCONTINENCE/NOCTURIA Urology Medication:NONE Antibiotic Allergy:NONE Blood Thinner:NONE TODAY'S PVR:0ML'S Textile Bag Sewer Required: No Allergies aspirin Adverse Reaction (Verified 08/26/24 10:20) rectal bleeding HPI Comments Details: Myrtle is a pleasant Setswana-speaking female. She is a patient of Dr. Cannon. She is seen for the following urologic conditions - urinary urgency and frequency Setswana translation provided by qualified certified medical transcriptionist Urinary urgency and frequency Prior sling procedure performed by Dr. Velarde 2019 for stress incontinence Recently developing urgency and frequency Involved with bathroom planning Minimal accidents No pads Does occasionally feel urgency and unable to empty PVR in office 0 cc Trial oxybutynin [facility] Medical History (Updated 08/26/24 @ 10:45 by Ibrahima Velasquez MD) Other spondylosis with radiculopathy, lumbar region Review of Systems Const Denies chills and Denies fever(s) Card Reports no additional complaints and Denies syncope Resp Denies cough GI Denies abdominal pain and Denies heartburn Reports as per HPI and Denies change in libido Neuro Denies syncope Psych Denies change in libido Endo Denies change in libido Physical Exam Const General: cooperative, healthy appearing, comfortable and no acute distress Orientation/consciousness: patient oriented x3 HEENT Face and sinus: Yes normal facial exam Mouth: moist mucous membranes Neck Neck: Yes normal visual inspection, Yes full ROM and Yes trachea midline Chest Chest palpation & inspection: normal inspection of the chest Resp Effort & Inspection: normal respiratory effort, able to speak in complete senten virgie and no respiratory distress GI Inspection: Yes normal to inspection Back/Spine/Pelvis Cervical Spine: normal cervical lordosis Thoracic/Lumbar Spine: thoracic and lumbar spine normal to inspection Skin General skin exam: no rashes or lesions noted Neuro General: patient oriented x3, gait normal, tone normal and moves all extremities Extrem General: Yes normal to inspection and Yes capillary refill normal Office Procedures Post Void Residual Post Residual Void Post Void Residual (PVR): 0 [id number] Void Residual by ultrasound Assessment & Plan Assessment & Plan (1) Urinary urgency: Code(s): R39.15 - Urgency of urination Category: Medical Plan Trial oxybutynin Two month follow-up Orders: Orders AMB Urinalysis Automated Today Z13.9 - Encounter for screening, unspecified Medications: New oxybutynin chloride ER 5 mg PO DAILY 30 days 30 tabs 1RF N32.81 - Overactive bladder, R39.15 - Urgency of urination Patient Instructions: This note is constructed using voice recognition software. While every effort has been made to ensure accuracy bleach supervisor errors may have been included. Imaging studies, laboratory and physical exam results were discussed and reviewed in detail. No major barriers to patient understanding were identified. An opportunity to ask questions regarding the treatment plan was provided. All questions were answered. The patient expressed understanding and agreement with the above treatment plan. The patient is aware they should contact our office by phone for worsening of their current condition or the appearance of new urologic symptoms. Compliance is encouraged with any medications and followup testing that is ordered. It is a privilege to participate in the urologic care of your patient. If you have any questions or concerns regarding treatment for the above conditions, or other urologic issues, please do not hesitate to contact me. The office telephone contact is [phone]. Sincerely, Dr Ibrahima Velasquez MD, [facility] - Urology Compassionate Specialist Care for the Genitourinary System Coding Level of Care Code New Pt Level 4 (41335) Diagnoses Urinary urgency R39.15 CPT Codes Post Residual Void - PVR CPT Code: 77236-Msxc Void Residual by ultrasound ([id number])
== END 2024-08-26 10:49 | disposition home or self-care (01) ==
LOC: HO.HUSH 10:14
PROVIDERS: PCP Internal Medicine; Visit Provider Urology
DX: R39.15 Urgency of urination (principal)
CPT/HCPCS: 99204

== ENCOUNTER → 2024-08-26 10:13 | Outpatient (BNVA) | payer MEDICAID, SELFPAY | PROVIDERS: PCP Internal Medicine; Visit Provider Urology | DX: R35.1 Nocturia (principal); R39.15 Urgency of urination; N32.81 Overactive bladder | CPT/HCPCS: 51798; 99202 ==

== ENCOUNTER 2024-09-23 06:16 | Outpatient (REF) | payer MEDICAID, SELFPAY ==
--- NOTE | ~2024-09-23 | FL_ITS ---
EXAMINATION: XR FLUOROSCOPY WITH IMAGES CLINICAL INFORMATION: Wedge compression fracture of unspecified thoracic vertebra. Pain management procedure. COMPARISON: 07/30/2024. TECHNIQUE: Fluoroscopy provided to: Dr. Ochoa Fluoroscopy time: 0.2 minutes DAP: 0.0239 mGycm2 Images: 1 FINDINGS: Solitary spot image taken during pain management injection procedure. Please refer to full procedural report for details. FL/FL guidance in treatment room IMPRESSION: Fluoroscopic guidance . Electronically signed by: Denilson Koch MD 09/24/2024 09:10 AM EDT
== END 2024-09-23 06:17 | disposition home or self-care (01) ==
LOC: CF 06:16
PROVIDERS: Visit Provider Anesthesiology
DX: R07.81 Pleurodynia (principal); S22.000A Wedge compression fracture of unspecified thoracic vertebra, initial encounter for closed fracture; G58.8 Other specified mononeuropathies
CPT/HCPCS: 64420; J2003; J2795; J3301; Q9967

== ENCOUNTER 2024-09-23 07:28 | Outpatient (AMB) | payer MEDICAID, SELFPAY ==
[2024-09-23 07:33] VITALS: BP 188/80; PULSE 78; RESP 16; O2SAT 99
--- NOTE | 2024-09-23 07:33 | A.OFFVIS_ITS ---
Vital Signs 09/23/24 07:33 09/23/24 08:00 BP 188/80 H 160/88 H Blood Pressure Location Lt brachial Lt brachial Position Sitting Sitting Respiration 16 16 Pulse 78 79 Pulse Source Pulse Oximeter Pulse Oximeter Pulse Oximetry (%) 99 98 Oxygen Delivery Method Room Air Room Air Intake Visit Reasons: BILATERAL RIB 11 INTERCOSTAL STEROID INJECTION Outpatient Physical Therapist Required: No Allergies aspirin Adverse Reaction (Verified 09/23/24 07:34) rectal bleeding Medication List - Last Reconciled 09/23/24 by Terrie Aranda LPN acetaminophen (Tylenol) 650 mg PO QID PRN albuterol sulfate 90 mcg/actuation 2 puffs PO Q4H PRN amitriptyline 100 mg PO BEDTIME cyclobenzaprine 5 mg PO TID PRN gabapentin 300 mg PO TID 30 days oxybutynin chloride ER 5 mg PO DAILY 30 days [facility] Medical History (Updated 09/23/24 @ 08:02 by Johnson Ochoa MD) Other spondylosis with radiculopathy, lumbar region Physical Exam Vital Signs: Last Vital Signs Pulse 79 09/23/24 08:00 Resp 16 09/23/24 08:00 BP 160/88 H 09/23/24 08:00 Pulse Ox 98 09/23/24 08:00 Oxygen Delivery Method Room Air 09/23/24 08:00 Assessment & Plan Assessment & Plan (1) Compression fracture of body of thoracic vertebra: Code(s): S22.000A - Wedge compression fracture of unspecified thoracic vertebra, initial encounter for closed fracture Category: Medical (2) Rib pain on right side: Code(s): R07.81 - Pleurodynia Category: Medical (3) 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 After the healing of the compression fracture she continued to complain on pain in the projection of the right more than left posterior ribcage with radiation on to anterior surface of the ribcage and difficulty breathing. Intercostal neuralgia was suspected and patient was taken to the operating room today. Informed consent was thoroughly explained to the patient and she was taken to the operating room and positioned prone on operating table. Wide ChloraPrep was performed on the patient's back. Sterile self adhesive utility drapes were applied to delineate operating field. After that palpation of the posterior ribcage was performed to locate the most painful area. It was responding to on the right. The image of rib 10 was obtained with collimation and it was noted that about 5-6 cm away from the head of the 10th rib the body of the rib is enlarged and deformed. The decision was made to send the patient for the CT scan to evaluate this area. The area of the injection was chosen more proximal to the area of deformity about 3 cm away from the head of the 10th rib. The projection of the point of interest to the skin was injected with mixture of lidocaine 2% and ropivacaine 0.5% one-to-one forming skin wheal. After that 22 gauge 3-1/2 inch needle was inserted through the skin and advanced to were the point of interest in tunnel vision fashion. When tip of the needle gently touched the inferior border of the rib in the point of interest the tip of the needle was advanced 2 mm deeper and then rotated to position the tip of the needle in the sulcus of the rib. Injection of the contrast was performed delineating the typical spread of the contrast with no spread of the contrast intra pleural or intravascularly. After that injection of the mixture of ropivacaine 0.5% 4 cc and Kenalog 40 mg was injected into the needle. Upon completion of the injection needle was withdrawn and sterile Band-Aid was applied. The patient tolerated the procedure well. Orders: Orders FL guidance in treatment room Today Radha Moses, REWINDER, MILK INSPECTOR S22.000A - Wedge compression fracture of unspecified thoracic vertebra, initial encounter for closed fracture CT chest wo IV con Today Johnson Ochoa MD R07.81 - Pleurodynia, S22.000A - Wedge compression fracture of unspecified thoracic vertebra, initial encounter for closed fracture Coding Level of Care Code Procedure Only Diagnoses Compression fracture of body of thoracic vertebra S22.000A Rib pain on right side R07.81 Intercostal neuralgia G58.8
[2024-09-23 08:00] VITALS: BP 160/88; PULSE 79; RESP 16; O2SAT 98
== END 2024-09-23 07:59 | disposition home or self-care (01) ==
LOC: HO.PMCPRC 07:28
PROVIDERS: PCP Internal Medicine; Visit Provider Anesthesiology
DX: R07.81 Pleurodynia (principal); G58.8 Other specified mononeuropathies
CPT/HCPCS: 64420

== ENCOUNTER 2024-09-30 06:08 | Outpatient (REF) | payer MEDICAID, SELFPAY ==
--- NOTE | ~2024-09-30 | FL_ITS ---
EXAMINATION: FL GUIDANCE ONLY HISTORY: G58.8 - Other specified mononeuropathies COMPARISON: None available. TECHNIQUE: Fluoroscopy time: 0.1 minutes. Cumulative Dose: 1.87 mGy. DAP: 0.0264 mGym2 Images: 2. FINDINGS: Images demonstrate a needle and contrast material inferiorly to the left 11th rib. FL/FL guidance in treatment room IMPRESSION: Fluoroscopy during procedure. Please see procedure report for additional information. Electronically signed by: Vernon Hagen MD 10/01/2024 03:50 PM EDT
--- OUTSIDE RECORDS SUMMARY | 2024-09-30 06:11 | XMS_ITS | Encounter Summary ---
Author Organization [employer] [facility] Address [address] [place] [address] Care Team Providers Care Consultant Name Role Phone Unavailable Primary Care Provider Unavailabl e Encounter Details Date Type Department Care Team (Late st Contact Info) Description 09/29/2024 Population Health Risk Score [facility] (C3) Department [address] [facility] [address] [place] [address] Provider, Population Health Generic Social History Tobacco Use Types Packs/Day Years Used Date Smoking Tobacco: Never Assessed Comments Unknown Sex and Gender Information Value Date Recorded Sex Assigned at Not on file Legal Sex Female 1:10 PM EDT Gender Identity Not on file Sexual Orientation Not on file documented as of this encounter Plan of Treatment Not on file documented as of this encounter Visit Diagnoses Not on filedocumented in this encounter
--- OUTSIDE RECORDS SUMMARY | 2024-09-30 06:11 | XMS_ITS | Clinical Summary ---
Author Organization [employer] [facility] Address [address] [facility] [address] [place] [address] Care Team Providers Care Flight Readiness Technician Name Role Phone Unavailable Primary Care Provider Unavailabl e Encounters Date Type Department Care Team Description 09/29/2024 Population Health Risk Score [facility] (C3) Department [address] [facility] [address] [place] [id number] Provider, Population Health Generic from Last 3 Months Social History Tobacco Use Types Packs/Day Years Used Date Smoking Tobacco: Never Assessed Comments Unknown Sex and Gender Information Value Date Recorded Sex Assigned at Not on file Legal Sex Female 1:10 PM EDT Gender Identity Not on file Sexual Orientation Not on file Plan of Treatment Health Maintenance Due Date Last Done Comments CT Colonography 1961 Colonoscopy 1961 Colorectal Cancer Screening 1961 Depression Screening 1961 FIT DNA/Cologuard 1961 FIT 1961 FOBT 1961 HIV Screening 1961 SDOH Screening 1961 Sigmoidoscopy 1961 Alcohol/Substance Use Screening 1973 Tobacco Screening 1973 Hepatitis C Screening 1979 DTaP/Tdap/Td Vaccines (1 - Tdap) 1980 Pap Smear 1982 Cervical Cancer Screening 1991 HPV/Cotest 1991 Mammogram 2001 Pneumococcal Vaccine: 50+ Ye ars (1 of 1 - PCV) 2011 Zoster Vaccines (1 of 2) 2011 COVID-19 Vaccine ( - 2023-2 5 season) 2024 Influenza Vaccine (#1) 2024 RSV Patients and Pa tients Aged 60 years or older (1 - 1-dose 75+ series) 2036 HIB Vaccines Aged Out No longer eligi ble based on patient's age to complete this topic HPV Vaccines Aged Out No longer eligi ble based on patient's age to complete this topic Hepatitis A Vaccines Aged Out No long er eligible based on patient's age to complete this topic Hepatitis B Vaccines Aged Out No long er eligible based on patient's age to complete this topic IPV Vaccines Aged Out No longer eligi ble based on patient's age to complete this topic Meningococcal Vaccine Aged Out No jennifer yung eligible based on patient's age to complete this topic RSV under 20 months Aged Out No longe r eligible based on patient's age to complete this topic Rotavirus Vaccines Aged Out No longer eligible based on patient's age to complete this topic
== END 2024-09-30 06:09 | disposition home or self-care (01) ==
LOC: CF 06:08
PROVIDERS: Visit Provider Anesthesiology
DX: S22.000A Wedge compression fracture of unspecified thoracic vertebra, initial encounter for closed fracture (principal); X58.XXXA Exposure to other specified factors, initial encounter; Y93.9 Activity, unspecified; Y92.9 Unspecified place or not applicable; Y99.9 Unspecified external cause status; R07.81 Pleurodynia; G58.8 Other specified mononeuropathies
CPT/HCPCS: 64420; J2003; J2795; J3301; Q9967

== ENCOUNTER 2024-09-30 07:30 | Outpatient (AMB) | payer MEDICAID, SELFPAY ==
--- OUTSIDE RECORDS SUMMARY | 2024-09-30 07:32 | XMS_ITS | Encounter Summary ---
Author Organization [employer] [facility] Address [address] [facility] [address] [place] [address] Care Team Providers Care Business Analytics Manager Name Role Phone Unavailable Primary Care Provider Unavailabl e Encounter Details Date Type Department Care Team (Late st Contact Info) Description 09/29/2024 Population Health Risk Score [facility] (C3) Department [address] [facility] [address] [place] [address] Provider, Population Health Generic Social [...]
--- OUTSIDE RECORDS SUMMARY | 2024-09-30 07:32 | XMS_ITS | Clinical Summary ---
Author Organization [employer] [facility] Address [address] [facility] [address] [place] [address] Care Team Providers Care Stake Setter Name Role Phone Unavailable Primary Care Provider Unavailabl e Encounters Date Type Department Care Team Description 09/29/2024 Population Health Risk Score [facility] (C3) Department [address] [facility] [address] [place] [id number] Provider, Population Health Generic from Last 3 [...]
[2024-09-30 07:45] VITALS: BP 160/96; PULSE 69; RESP 16; O2SAT 96
--- NOTE | 2024-09-30 07:45 | A.OFFVIS_ITS ---
Vital Signs 09/30/24 07:45 09/30/24 08:21 BP 160/96 H 162/92 H Blood Pressure Location Lt brachial Lt brachial Position Sitting Sitting Respiration 16 16 Pulse 69 72 Pulse Source Pulse Oximeter Pulse Oximeter Pulse Oximetry (%) 96 99 Oxygen Delivery Method Room Air Room Air Intake Visit Reasons: LEFT RIB 11 INTERCOSTAL INJECTION Deli Department Manager Required: No Allergies aspirin Adverse Reaction (Verified 09/30/24 07:45) rectal bleeding Medication List - Last Reconciled 09/30/24 by Terrie Aranda LPN acetaminophen (Tylenol) 650 mg PO QID PRN albuterol sulfate 90 mcg/actuation 2 puffs PO Q4H PRN amitriptyline 100 mg PO BEDTIME cyclobenzaprine 5 mg PO TID PRN gabapentin 300 mg PO TID 30 days oxybutynin chloride ER 5 mg PO DAILY 30 days [facility] Medical History (Updated 09/23/24 @ 08:02 by Johnson Ochoa MD) Other spondylosis with radiculopathy, lumbar region Physical Exam Vital Signs: Last Vital Signs Pulse 69 09/30/24 07:45 Resp 16 09/30/24 07:45 BP 160/96 H 09/30/24 07:45 Pulse Ox 96 09/30/24 07:45 Oxygen Delivery Method Room Air 09/30/24 07:45 Assessment & Plan Assessment & Plan (1) Compression fracture of body of thoracic vertebra: Code(s): S22.000A - Wedge compression fracture of unspecified thoracic vertebra, initial encounter for closed fracture Category: Medical (2) Rib pain on right side: Code(s): R07.81 - Pleurodynia Category: Medical (3) Intercostal neuralgia: Code(s): G58.8 - Other specified mononeuropathies Category: Medical Plan Intercostal rib 11 injection Myrtle is very pleasant 64 years old female who suffered compression fracture of the thoracic vertebra about 5 months ago. After the healing of the compression fracture she continued to complain on pain in the projection of the right more than left posterior ribcage with radiation on to anterior surface of the ribcage and difficulty breathing. Intercostal neuralgia was suspected, we performed right-sided intercostal rib injection rib 10. The patient reported today that she felt better on the right side however on the left side she felt still pain radiating along the ribcage with difficulty breathing. Today she came to the operating room to perform left-sided intercostal injection. Informed consent was thoroughly explained to the patient and she was taken to the operating room and positioned prone on operating table. Wide ChloraPrep was performed on the patient's back. Sterile self adhesive utility drapes were applied to delineate operating field. After that palpation of the posterior ribcage was performed to locate the most painful area. This time the most painful area was in location of rib 11. The area of the injection was chosen more proximal to the area of deformity about 2. cm away from the head of the 11 th rib. The projection of the point of interest to the skin was injected with mixture of lidocaine 2% and ropivacaine 0.5% one-to-one forming skin wheal. After that 22 gauge 3-1/2 inch needle was inserted through the skin and advanced to were the point of interest in tunnel vision fashion. When tip of the needle gently touched the inferior border of the rib in the point of interest the tip of the needle was advanced 2 mm deeper and then rotated to position the tip of the needle in the sulcus of the rib. Injection of the contrast was performed delineating the typical spread of the contrast with no spread of the contrast intra pleural or intravascularly. After that injection of the mixture of ropivacaine 0.5% 4 cc and Kenalog 40 mg was injected into the needle. Upon completion of the injection needle was withdrawn and sterile Band-Aid was applied. The patient tolerated the procedure well. Orders: Orders FL guidance in treatment room Today G58.8 - Other specified mononeuropathies Coding Level of Care Code Procedure Only Diagnoses Compression fracture of body of thoracic vertebra S22.000A Rib pain on right side R07.81 Intercostal neuralgia G58.8
[2024-09-30 08:21] VITALS: BP 162/92; PULSE 72; RESP 16; O2SAT 99
== END 2024-09-30 09:06 | disposition home or self-care (01) ==
PROVIDERS: PCP Internal Medicine; Visit Provider Anesthesiology
DX: R07.89 Other chest pain (principal); G58.8 Other specified mononeuropathies
CPT/HCPCS: 64420

== ENCOUNTER 2024-10-15 08:12 | Outpatient (AMB) | payer OTHER, SELFPAY ==
--- OUTSIDE RECORDS SUMMARY | 2024-10-15 08:19 | XMS_ITS | Clinical Summary ---
Author Organization ? [facility] Address [address] [facility] [address] [place] [address] Care Team Providers Care Pastor Name Role Phone Unavailable Primary Care Provider Unavailabl e Encounters Date Type Department Care Team Description 09/29/2024 Population Health Risk Score [facility] (C3) Department [address] [facility] [address] [place] [id number] Provider, Population Health Generic from Last 3 [...]
--- NOTE | 2024-10-15 08:30 | MHC.OFFVIS ---
Vital Signs 10/15/24 08:31 Height 5 ft 1 in Weight 152 lb BMI 28.7 BP 141/69 H Blood Pressure Location Lt brachial Position Sitting Respiration 16 Pulse 71 Pulse Source Pulse Oximeter Pulse Oximetry (%) 96 Oxygen Delivery Method Room Air Intake Visit Reasons: BILATERAL RIB 11 INTERCOSTAL STEROID INJECTION Photogrammetry Airplane Pilot Required: No Allergies aspirin Adverse Reaction (Verified 10/15/24 08:32) rectal bleeding Medication List - Last Reconciled 10/15/24 by Terrie Aranda LPN acetaminophen (Tylenol) 650 mg PO QID PRN albuterol sulfate 90 mcg/actuation 2 puffs PO Q4H PRN amitriptyline 100 mg PO BEDTIME cyclobenzaprine 5 mg PO TID PRN gabapentin 300 mg PO TID 30 days oxybutynin chloride ER 5 mg PO DAILY 30 days HPI Comments Details: Myrtle is here today to discuss the results of bilateral intercostal injection. She reported that the left injection helped a lot however right injection continues to hurt. We noticed some abnormality on the right side while doing the injections see my note as previously written, based on this note I sent the patient to CT scan of the chest. Most likely it is poorly healed rib fracture however red flags needs to be lifted. The patient is scheduled for the appointment with CT scan on 11/26/2024. I will see her in the office on 11/30/2024. We will discuss results of the MRI. Meanwhile I told her that breathing exercises the best way to treat her condition. I recommended her inflating balloons exercises. Prior: repeat transforaminal epiduralsteroid injection which was performed on 07/15/2024. She reports good pain relief after the procedure. She reports that pain in the back is not bothering her anymore. However she reports pain in the area of the posterior chest in the projection of bilateral 11 ribs approximately with radiation into the anterior chest under her breasts. She reports pain increased with her attempting to take a deep breath. 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 I offered her to perform bilateral rib 11 intercostal injection. I will schedule it as soon as possible. Prior to this procedure patient had transforaminal epidural steroid injection on 04/08/2024 with good pain results however she fell in June and injured her mid and upper back as well as lower back. Also possibility exists on her receiving compression fracture of the thoracic vertebra. I will send her for the x-ray of the thoracic spine. Prior: She received in 2021 transforaminal epidural steroid injection L3-L4 and L4-5 on the right. She is suffering from radiculopathy of the lumbar spine. This injection was very instrumental to help her pain. She reported excellent pain relief 1 month after procedure for the follow-up. She reported another 3 months of the pain relief after the therefore the total pain relief was up to 4 months. However to that she failed to schedule yet another appointment with us to schedule the injection. Now her pain is unbearable and it is 8 to 9/10. She requests me to repeat this procedure. I will schedule her as soon as possible. Prior: Very pleasant 61 years old female who is in my office under observation for significant period of time. We started her treatment here with the diagnostic MBB which was very effective for treating her pain. However following therapeutic MBB did not result in good pain relief. MRI was obtained and some minimal changes were found at L3-L4 L4-5 levels. The patient was offered in May of 2021 therapeutic transforaminal epidural steroid injection. She reported that injection done in May of 2021 resulted in prolonging continuous pain relieve until September. After the pain got returned she was scheduled for yet another transforaminal epidural steroid injection L3-L4 L4-5 on the right with Dr. Tobias. Unfortunately the patient reported minimal pain relief for 2 days only. This injection happened in October 28. She was given today an option to perform sprint procedure trial in the order to attempt to alleviate her pain [facility] Medical History (Updated 09/23/24 @ 08:02 by Johnson Ochoa MD) Other spondylosis with radiculopathy, lumbar region Review of Systems Const All systems reviewed & are unremarkable except as noted in HPI and below ENT Reports Normal hearing present Neuro Reports Normal hearing present, Denies Abnormal speech present and Denies confusion Psych Denies confusion Physical Exam Vital Signs: Last Vital Signs Pulse 71 10/15/24 08:31 Resp 16 10/15/24 08:31 BP 141/69 H 10/15/24 08:31 Pulse Ox 96 10/15/24 08:31 Oxygen Delivery Method Room Air 10/15/24 08:31 BMI result Body Mass Index 28.7 Const General: cooperative, healthy appearing, no acute distress and alert; No confusion Nutritional Appearance: average body habitus Orientation/consciousness: patient oriented x3 and No confusion Limitations: no limitations HEENT Head: Yes normocephalic and Yes atraumatic Ears: hearing grossly normal bilaterally Eyes General: appearance normal, both eyes and all related structures Eyelids: Yes eyelids normal Pupils: Equal, round and reactive pupils present EOM: EOMs intact bilaterally Neck Neck: Yes normal visual inspection and Yes no JVD Chest Other: Tenderness on palpation in the projection of approximately both 11 ribs bilaterally. tenderness on palpation in projection of approximately T11 vertebral body. Pain increases with the patient taking slow deep breath. Resp Effort & Inspection: normal respiratory effort, able to speak in complete sentences and no audible wheezes Cardio Jugular venous distension: no JVD Back/Spine/Pelvis Other: SLR is positive on pain increase on the right. She points out to shooting pain in the location of between the 1st and 2nd toe on the right. Valsalva maneuver is positive for pain increase. Coughing and sneezing increase her pain in the back and results in shooting pain down the lower extremity on the right. Neuro General: patient oriented x3 and No confusion Cranial nerves: Yes Equal, round and reactive pupils present and Yes Normal hearing present Speech: No Abnormal speech present Assessment & Plan Assessment & Plan (1) Compression fracture of body of thoracic vertebra: Code(s): S22.000A - Wedge compression fracture of unspecified thoracic vertebra, initial encounter for closed fracture Category: Medical (2) Rib pain on right side: Code(s): R07.81 - Pleurodynia Category: Medical (3) Intercostal neuralgia: Code(s): G58.8 - Other specified mononeuropathies Category: Medical (4) Spondylosis of lumbar spine: Code(s): M47.816 - Spondylosis without myelopathy or radiculopathy, lumbar region Category: Medical (5) Sacroiliitis, not elsewhere classified: Code(s): M46.1 - Sacroiliitis, not elsewhere classified Category: Medical (6) Osteoarthritis of right hip: Code(s): M16.11 - Unilateral primary osteoarthritis, right hip Category: Medical Qualifiers: Osteoarthritis type: primary Qualified Code(s): M16.11 - Unilateral primary osteoarthritis, right hip (7) Myofascial pain syndrome, cervical: Code(s): M79.18 - Myalgia, other site Category: Medical (8) Other spondylosis with radiculopathy, lumbar region: Code(s): M47.26 - Other spondylosis with radiculopathy, lumbar region Category: Medical Plan On the x-ray thoracic spine of this patient there were no fractures obvious to discover. However when I was doing intercostal injections wider than normal dimensions of the right-sided rib 10 attracted my attention. I sent her for CT scan. CT scan is scheduled on 11/26/2024. I will see this patient on 11/30/2024. Previously this patient received with me very successful transforaminal epidural steroid injections. Now most of her concern is pain in the thoracic back and difficulty breathing. Coding Level of Care Code Est Pt Level 3 (80863) Diagnoses Compression fracture of body of thoracic vertebra S22.000A Rib pain on right side R07.81 Intercostal neuralgia G58.8 Spondylosis of lumbar spine M47.816 Sacroiliitis, not elsewhere classified M46.1 Primary osteoarthritis of right hip M16.11 Osteoarthritis type: primary Myofascial pain syndrome, cervical M79.18 Other spondylosis with radiculopathy, lumbar region M47.26
[2024-10-15 08:31] VITALS: BP 141/69; PULSE 71; RESP 16; O2SAT 96; BMI 28.7
== END 2024-10-15 08:48 | disposition home or self-care (01) ==
PROVIDERS: PCP Internal Medicine; Visit Provider Anesthesiology
DX: R07.81 Pleurodynia (principal); G58.8 Other specified mononeuropathies; M47.816 Spondylosis without myelopathy or radiculopathy, lumbar region; M46.1 Sacroiliitis, not elsewhere classified; M16.11 Unilateral primary osteoarthritis, right hip; M79.18 Myalgia, other site; M47.26 Other spondylosis with radiculopathy, lumbar region
CPT/HCPCS: 99213

== ENCOUNTER → 2024-10-15 08:12 | Outpatient (BNVA) | payer MEDICAID, SELFPAY | PROVIDERS: PCP Internal Medicine; Visit Provider Anesthesiology | DX: S22.000A Wedge compression fracture of unspecified thoracic vertebra, initial encounter for closed fracture (principal); R07.81 Pleurodynia; G58.8 Other specified mononeuropathies; M46.1 Sacroiliitis, not elsewhere classified; M16.11 Unilateral primary osteoarthritis, right hip; M79.18 Myalgia, other site; M47.26 Other spondylosis with radiculopathy, lumbar region; X58.XXXA Exposure to other specified factors, initial encounter; Y93.9 Activity, unspecified; Y92.9 Unspecified place or not applicable; Y99.9 Unspecified external cause status | CPT/HCPCS: 99212 ==

== ENCOUNTER 2024-11-12 09:28 | Outpatient (AMB) | payer OTHER, SELFPAY ==
[2024-11-12 09:38] VITALS: BP 172/100; PULSE 74; RESP 14; TEMP 35.9; O2SAT 97; BMI 29.3
--- NOTE | 2024-11-12 09:38 | A.OFFPC_ITS ---
Vital Signs 11/12/24 09:38 Height 5 ft 1 in Weight 70.307 kg BMI 29.3 BP 172/100 H Respiration 14 Pulse 74 Pulse Source Pulse Oximeter Temp 96.7 F L Pulse Oximetry (%) 97 Oxygen Delivery Method Room Air Intake Visit Reasons: Routine - see comments Machine Plaster Mixer Required: No Accompanied by: Self / Same As Patient Allergies aspirin Adverse Reaction (Verified 11/12/24 09:38) rectal bleeding Tobacco use date assessed: 11/12/24 Dental Screening Dental Screen Date: 11/12/24 Did you have a dental visit in the last 12 months?: Yes Did you have a dental problem in the last 6 months where you did not have access to dental care?: No HPI HPI Comments History of Present Illness Details 64-year-old female with history of hyper tension, compression fracture of the thoracic vertebra with chronic mid back pain, 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 Hypertension-reports she did not take her antihypertensive medications this morning. Blood pressure in the office 172/100. Otherwise does report compliance with losartan-hydrochlorothiazide, hydralazine, amlodipine. Despite these therapies, blood pressures have been elevated at prior visits. Denies any chest pains or vision changes. However, does have chronic headaches for which she follows with Neurology. Reports reflux when taking bp meds, suspect hctz Chronic daily headaches- following with Wilma Mosher in neurology. Taking Topamax and amitriptyline for prophylaxis with limited effect. 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 Following with pain management and receives cortisone injections. She is on amitriptyline, gabapentin, cyclobenzaprine Concerns: Left ear pain-describes a sharp constant pain of the left ear with tenderness to palpation. No decreased hearing, tinnitus, vertigo Diffuse pruritus-reports longstanding. Has been using lotions at home. Does tell me she showers 2-3 times per day. Health maintenance: Last colonoscopy 04/2020, 70 year follow-up advised. Dr. Hassan Last mammogram-10/2023, upcoming mammogram scheduled Pap smear-new patient visit with [facility] 04/2025 ROS: General: No fevers, malaise, unintentional weight loss HEENT: No blurred vision, diplopia. see hpi Cardiovascular: No chest pain, palpitations, or leg edema Respiratory: No shortness of breath, wheezing, cough MSK: see hpi Neuro: see hpi Skin: No rashes or lesions EXAM: Constitutional - Awake and Alert, No apparent distress Eyes - PERRL Ears -external ears normal, canals with faint erythema but no edema L>R, TMs intact without any bulging but air-fluid levels noted Cardiovascular - S1S2, RRR, No edema Respiratory - Normal lung expansion, Normal respiratory effort, No respiratory distress, CTA bilaterally Extremities - no calf tenderness bilaterally, no swelling Skin - Warm/Dry Neurological - Alert & oriented x3 Psychological - Appropriate affect [facility] Medical History (Updated 11/12/24 @ 13:51 by MONI Alvarez) Vitamin D deficiency HTN (hypertension) Other spondylosis with radiculopathy, lumbar region Surgical History History of colonoscopy (~05/03/20) Social History Housing: House Patient Tobacco Use Status: Never used Tobacco e-Cigarette/Vaping Use: Never Used service: No Current occupational status: retired Cognitive needs: No Hearing needs: No Vision needs: No Questionnaire PHQ-9 Over the last 2 weeks, how often have you been bothered by any of the following problems? 1. Little interest or pleasure in doing things: not at all 2. Feeling down, depressed, or hopeless: not at all 3. Trouble falling or staying asleep, or sleeping too much: more than half the days 4. Feeling tired or having little energy: more than half the days 5. Poor appetite or overeating: several days 6. Feeling bad about yourself - or that you are a failure or have let yourself or your family down: not at all 7. Trouble concentrating on things, such as reading the newspaper or watching television: not at all 8. Moving or speaking so slowly that other people could have noticed. Or the opposite - being so fidgety or restless that you have been moving around a lot more than usual: not at all 9. Thoughts that you would be better off or of hurting yourself in some way: not at all Total score: 5 Source: Developed by Drs. Vernon Rivera, Anai Obrien, Chang Fontanez and colleagues, with an educational raymundo from [employer]. Thrive Questionnaire Date Thrive assessed: 11/12/24 I am a: Patient Within the past 12 months, did the food you bought not last and you didn't have the money to get more?: Never true Within the past 12 months, did you worry whether your food would run out before you got money to buy more?: Never true Do you have trouble paying for medicines?: No Do you have trouble getting transportation to medical appointments?: No Do you have trouble paying your heating and electricity bill?: No Do you have trouble taking care of your child, family member or friend?: No Do you have trouble with day-to-day activities such as bathing, preparing meals, shopping, managing finances, etc.?: No Are you currently unemployed and looking for a job?: No Are you interested in more education?: No THRIVE Score: 0 AUDIT C Alcohol Use Questionnaire (AUDIT-C) 1. How often do you have a drink containing alcohol?: Never 3. How often do you have six or more drinks on one occasion?: Never Total Score: 0 LANCE-7 AMB Questionnaire LANCE-7 Date LANCE - 7 assessed: 11/12/24 Feeling nervous, anxious, or on edge: 0 = Not at all Not being able to stop or control worryin = Not at all Worrying too much about different things: 0 = Not at all Trouble relaxin = Several days Being so restless that it is hard to sit still: 0 = Not at all Becoming easily annoyed or irritable: 0 = Not at all Feeling afraid as if something awful might happen: 0 = Not at all Total LANCE-7 score (0-4 normal; 5-9 mild; 10-14 moderate; 15-21 severe): 1 Source: Developed by Drs. Vernon Rivera, Anai Obrien, Chang Fontanez and colleagues, with an educational raymundo from [employer]. Physical exam (Primary Care) Vital Signs: Last Vital Signs Temp 96.7 F L 11/12/24 09:38 Pulse 74 11/12/24 09:38 Resp 14 11/12/24 09:38 BP 172/100 H 11/12/24 09:38 Pulse Ox 97 11/12/24 09:38 Oxygen Delivery Method Room Air 11/12/24 09:38 BMI result Body Mass Index 29.3 Tobacco/Smoking Status: Tobacco use Status Tobacco use date assessed 11/12/24 11/12/24 09:39 Patient Tobacco Use Status Never used Tobacco 11/12/24 09:39 e-Cigarette/Vaping Use Never Used 11/12/24 09:39 PHQ-9: PHQ-9 Score PHQ-9: Total score 5 11/12/24 10:14 Thrive Assessment: Date of Thrive Assessment Date Thrive assessed 11/12/24 11/12/24 09:39 Coding Level of Care Code New Pt Level 4 (11748) Complex EM visit Add On G2211 Diagnoses HTN (hypertension) I10 Vitamin D deficiency E55.9 Myofascial pain syndrome, cervical M79.18 Left otitis externa H60.92 Pruritus L29.9 Assessment & Plan Assessment & Plan (1) HTN (hypertension): Code(s): I10 - Essential (primary) hypertension Category: Medical Plan: Uncontrolled today as well as with medication compliance. DC hctz due to side effects. Increase losartan to 100mg daily, continue amlodipine 10mg, and hydralazine 25mg BID. Low sodium diet. Follow up for bp recheck (2) Vitamin D deficiency: Code(s): E55.9 - Vitamin D deficiency, unspecified Category: Medical Plan: Vit D level ordered (3) Myofascial pain syndrome, cervical: Code(s): M79.18 - Myalgia, other site Category: Medical Plan: Continue following with pain management (4) Left otitis externa: Code(s): H60.92 - Unspecified otitis externa, left ear Category: Medical Plan: Ofloxacin drops prescribed (5) Pruritus: Code(s): L29.9 - Pruritus, unspecified Category: Medical Plan: Loratadine daily recommended. Continue use of emollient moisturizers. Recommend decreasing the number of showers she is taking daily. Recommend no more than 1 shower daily unless needed Plan Follow-up in the office in 2-3 weeks for blood pressure recheck. Antihypertensive compliance advised. Labs to be completed following visit today. Orders: Orders Vitamin D 25-OH Total Today E55.9 - Vitamin D deficiency, unspecified, I10 - Essential (primary) hypertension, Z13.1 - Encounter for screening for diabetes mellitus, Z13.220 - Encounter for screening for lipoid disorders Basic Metabolic Panel Today E55.9 - Vitamin D deficiency, unspecified, I10 - Essential (primary) hypertension, Z13.1 - Encounter for screening for diabetes mellitus, Z13.220 - Encounter for screening for lipoid disorders Complete Blood Count Auto Diff Today E55.9 - Vitamin D deficiency, unspecified, I10 - Essential (primary) hypertension, Z13.1 - Encounter for screening for diabetes mellitus, Z13.220 - Encounter for screening for lipoid disorders Hemoglobin A1c Today E55.9 - Vitamin D deficiency, unspecified, I10 - Essential (primary) hypertension, Z13.1 - Encounter for screening for diabetes mellitus, Z13.220 - Encounter for screening for lipoid disorders Lipid Panel Today E55.9 - Vitamin D deficiency, unspecified, I10 - Essential (primary) hypertension, Z13.1 - Encounter for screening for diabetes mellitus, Z13.220 - Encounter for screening for lipoid disorders Liver Panel Today E55.9 - Vitamin D deficiency, unspecified, I10 - Essential (primary) hypertension, Z13.1 - Encounter for screening for diabetes mellitus, Z13.220 - Encounter for screening for lipoid disorders Medications: New losartan 100 mg PO DAILY 90 tabs 1RF triamcinolone acetonide 0.1% 1 appl topical BID PRN 30 grams 2RF rash ketoconazole 2% 1 appl topical BID 60 grams 1RF rash under breast ofloxacin 0.3% 10 drps otic (ears) BID 10 mL 0RF 147 days loratadine 10 mg PO DAILY 90 tabs 0RF
--- OUTSIDE RECORDS SUMMARY | 2024-11-12 10:20 | XMS_ITS | Clinical Summary ---
Author Organization [employer] [facility] Address [address] [facility] [address] [place] [address] Care Team Providers Care Coin Box Collector Name Role Phone Unavailable Primary Care Provider Unavailabl e Encounters Date Type Department Care Team Description 09/29/2024 Population Health Risk Score [facility] (C3) Department [address] [facility] [address] [place] [id number] Provider, Population Health Generic from Last 3 [...] Screening 1961 SDOH Screening 1961 Sigmoidoscopy 1961 Disability Screening 1961 Alcohol/Substance Use Screening 1973 Tobacco Screening 1973 Hepatitis C Screening 1979 DTaP/Tdap/Td Vaccines (1 - Tdap) 1980 Pap Smear 1982 Cervical Cancer Screening 1991 HPV/Cotest 1991 Mammogram 2001 Pneumococcal Vaccine: 50+ Ye ars (1 of 1 - PCV) 2011 Zoster Vaccines (1 of 2) 2011 COVID-19 Vaccine ( - 2023-2 5 season) 2024 Influenza Vaccine (Season Ended) 2025 RSV Patients and Pa tients Aged 60 [...] patient's age to complete this topic Meningococcal B Vaccine Aged Out No l onger eligible based on patient's age to complete [...]
== END 2024-11-12 10:28 | disposition home or self-care (01) ==
LOC: HO.HMCHD 09:29
PROVIDERS: PCP Internal Medicine; Visit Provider Internal Medicine
DX: I10 Essential (primary) hypertension (principal); E55.9 Vitamin D deficiency, unspecified; M79.18 Myalgia, other site; H60.92 Unspecified otitis externa, left ear; L29.9 Pruritus, unspecified

== ENCOUNTER → 2024-11-12 09:28 | Outpatient (BNVA) | payer OTHER, SELFPAY | PROVIDERS: PCP Internal Medicine; Visit Provider Internal Medicine | DX: I10 Essential (primary) hypertension (principal); M47.26 Other spondylosis with radiculopathy, lumbar region; M79.18 Myalgia, other site; R51.9 Headache, unspecified; E55.9 Vitamin D deficiency, unspecified; G89.4 Chronic pain syndrome; H92.02 Otalgia, left ear; H60.92 Unspecified otitis externa, left ear; Z79.899 Other long term (current) drug therapy | CPT/HCPCS: 99202 ==

== ENCOUNTER 2024-11-13 09:30 | Outpatient (REF) | payer OTHER, SELFPAY ==
[2024-11-13 09:45] LABS: MANUAL DIFF FLAG NO
[2024-11-13 10:17] LABS: Basophils Absolute Auto 0.1 X10*3/uL (0.0-0.2); Basophils Percent Auto 0.5 % (0-2); Eosinophils Absolute Auto 0.1 X10*3/uL (0.0-0.4); Eosinophils Percent Auto 1.4 % (0-4); Hematocrit 42.7 % (37.0-47.0); Hemoglobin 13.4 g/dl (12.0-16.0); Imm Gran Abs Auto 0.03 X10*3/uL (0.00-0.03); Imm Gran Pct Auto 0.3 % (0.0-0.4); Mean Corpuscular HGB Conc 31.4 g/dl (31.0-35.0); Mean Corpuscular Hemoglobin 29.1 pg (27.0-33.0); Mean Corpuscular Volume 92.8 fL (80.0-98.0); Mean Platelet Volume 10.6 fL (9.4-12.3); Monocytes Absolute Auto 0.5 X10*3/uL (0.1-1.2); Monocytes Percent Auto 5.1 % (2-11); Neutrophils Absolute Auto 5.5 x10*3/uL (2.0-8.3); Neutrophils Percent Auto 53.7 % (45-73); Platelet Count 311 X10*3/uL (160-400); Red Cell Distribution Width 12.9 % (11.0-16.0); White Blood Count 10.3 X10*3/uL (4.8-10.8)
[2024-11-13 10:24] LABS: Estimated Average Glucose 123 mg/dL; Hemoglobin A1C 147.9838 umol/L; Hemoglobin A1c % 5.9 % (<6.0); Total Hemoglobin (HGBA1C) 3594.1924 umol/L
--- OUTSIDE RECORDS SUMMARY | 2024-11-13 10:26 | XMS_ITS | Clinical Summary ---
Author Organization [facility] Address [address] [facility] [address] [place] [address] Care Team Providers Care Facility Technician Name Role Phone Unavailable Primary Care Provider Unavailabl e Encounters Date Type Department Care Team Description 09/29/2024 Population Health Risk Score [facility] (C3) Department [address] [facility] [address] [place] [id number] Provider, Population Health Generic from Last 3 [...]
[2024-11-13 10:45] LABS: Alanine Aminotransferase 22 U/L (0-31); Albumin Level 4.1 g/dL (3.5-5.0); Alkaline Phosphatase 83 U/L (39-117); Anion Gap 10 (12-20); Aspartate Amino Transferase 18 U/L (5-31); Bilirubin Direct 0.2 mg/dL (0.0-0.5); Bilirubin Total 0.4 mg/dL (0.0-1.0); Blood Urea Nitrogen 13 mg/dL (9-16); Carbon Dioxide 26 mmol/L (22-29); Chloride 111 mmol/L (96-108); Cholesterol 109 mg/dL (<200); Estimated Glomerular Filt Rate > 60; Glucose Random 96 mg/dL (60-115); HDL Cholesterol 39 mg/dL (>40); LDL Cholesterol Calculated 54 mg/dL (<100); Potassium 4.2 mmol/L (3.3-5.1); Sodium 143 mmol/L (135-145); Total Protein 6.6 g/dL (6.5-8.0); Triglycerides 81 mg/dL (<150)
[2024-11-13 11:02] LABS: Vitamin D 25-OH Total 9.6 ng/mL (>30)
== END 2024-11-13 09:31 | disposition home or self-care (01) ==
LOC: HO.LAB 09:30
PROVIDERS: PCP Physician Assistant; Visit Provider Physician Assistant
DX: Z13.220 Encounter for screening for lipoid disorders (principal); Z13.1 Encounter for screening for diabetes mellitus; E55.9 Vitamin D deficiency, unspecified; I10 Essential (primary) hypertension
CPT/HCPCS: 36415; 80048; 80061; 80076; 82306; 83036; 85025

== ENCOUNTER 2024-11-26 14:54 | Outpatient (AMB) | payer OTHER, SELFPAY ==
--- NOTE | 2024-11-26 15:01 | MHC.PC.OV ---
Vital Signs 11/26/24 15:06 Height 5 ft 1 in Weight 70.76 kg BMI 29.5 BP 122/80 Respiration 16 Pulse 72 Pulse Source Pulse Oximeter Temp 96.0 F L Temp Source Temporal Artery Scan Intake Visit Reasons: BP Check Ticket Taker Required: No Accompanied by: Self / Same As Patient Allergies aspirin Adverse Reaction (Verified 11/26/24 15:02) rectal bleeding Medication List - Last Reconciled 11/26/24 by MONI Alvarez acetaminophen (Tylenol) 650 mg PO QID PRN albuterol sulfate 90 mcg/actuation 2 puffs PO Q4H PRN amitriptyline 100 mg PO BEDTIME cholecalciferol (vitamin D3) 1,250 mcg PO QWEEK cholecalciferol (vitamin D3) 50 mcg PO DAILY cyclobenzaprine 10 mg PO BEDTIME fluticasone propionate 250 mcg/actuation 1 inh inhalation BID gabapentin 300 mg PO TID 30 days loratadine 10 mg PO DAILY losartan 100 mg PO DAILY nystatin 1 appl topical TID PRN oxybutynin chloride ER 5 mg PO DAILY 30 days topiramate 25 mg PO BEDTIME triamcinolone acetonide 0.1% 1 appl topical BID PRN Tobacco use date assessed: 11/12/24 Dental Screening Dental Screen Date: 11/12/24 HPI HPI Comments History of Present Illness Details 64-year-old female presents to the office today for follow-up. Last visit, blood pressures were significantly 172/100 however she had not taken her medications. Since then she states she has been taking losartan 100 mg daily. She is no longer taking amlodipine 10 mg or hydralazine 25 mg b.i.d., stating she has not been taking these in several months. Reviewed last lab work with the patient. Hemoglobin A1c was 5.9%, consistent with prediabetes. She does state that she has been making significant changes to her diet. She was previously using 5 large scoops of sugar in her coffee and eating a lot of sweets. She has since discontinued this. She is hopeful this will also help with weight loss. Blood pressures today are significantly improved at 122/80. Vitamin-D levels were also very deficient at 9.6. She was prescribed 1250 mcg weekly to elevate levels and then advised to take 2000 units daily. However, she states she has been taking both together. She also has history of asthma/COPD and reports she has been requiring the use of her albuterol inhaler nightly due to wheezing. ROS: General: No fevers, malaise, unintentional weight loss Cardiovascular: No chest pain, palpitations, or leg edema Respiratory: No shortness of breath, wheezing, cough MSK: No myalgia, back pain Neuro: No headaches, weakness, paresthesias Skin: No rashes or lesions EXAM: Constitutional - Awake and Alert, No apparent distress Eyes - PERRL Cardiovascular - S1S2, RRR, No edema Respiratory - Normal lung expansion, Normal respiratory effort, No respiratory distress, CTA bilaterally Extremities - no calf tenderness bilaterally, no swelling Skin - Warm/Dry Neurological - Alert & oriented x3 Psychological - Appropriate affect [facility] Medical History (Updated 11/26/24 @ 15:34 by MONI Alvarez) Asthma with COPD Prediabetes Vitamin D deficiency HTN (hypertension) Other spondylosis with radiculopathy, lumbar region Surgical History History of colonoscopy (~05/03/20) Social History Housing: House Patient Tobacco Use Status: Never used Tobacco e-Cigarette/Vaping Use: Never Used service: No Current occupational status: retired Cognitive needs: No Hearing needs: No Vision needs: No Questionnaire Thrive Questionnaire Date Thrive assessed: 11/12/24 LANCE-7 AMB Questionnaire LANCE-7 Date LANCE - 7 assessed: 11/12/24 Source: Developed by Drs. Vernon Rivera, Anai Obrien, Chang Fontanez and colleagues, with an educational raymundo from [employer]. Physical exam (Primary Care) Vital Signs: Last Vital Signs Temp 96.0 F L 11/26/24 15:06 Pulse 72 11/26/24 15:06 Resp 16 11/26/24 15:06 BP 122/80 11/26/24 15:06 BMI result Body Mass Index 29.5 Tobacco/Smoking Status: Tobacco use Status Tobacco use date assessed 11/12/24 11/26/24 15:05 Patient Tobacco Use Status Never used Tobacco 11/26/24 15:05 e-Cigarette/Vaping Use Never Used 11/26/24 15:05 Thrive Assessment: Date of Thrive Assessment Date Thrive assessed 11/12/24 11/26/24 15:05 Coding Level of Care Code Est Pt Level 4 (43354) Complex EM visit Add On G2211 Diagnoses HTN (hypertension) I10 Prediabetes R73.03 Vitamin D deficiency E55.9 Asthma with COPD J44.89 Assessment & Plan Assessment & Plan (1) HTN (hypertension): Code(s): I10 - Essential (primary) hypertension Category: Medical Plan: Controlled with BP 122/80. Continue losartan 100 mg daily. Low-sodium diet. (2) Prediabetes: Code(s): R73.03 - Prediabetes Category: Medical Plan: New onset. Counseled on diabetic diet which will also help improve weight. We will recheck hemoglobin A1c at next visit. (3) Vitamin D deficiency: Code(s): E55.9 - Vitamin D deficiency, unspecified Category: Medical Plan: Continue vitamin-D as prescribed. Counseled on dosing. (4) Asthma with COPD: Code(s): J44.89 - Other specified chronic obstructive pulmonary disease Category: Medical Plan: Commended on smoking cessation, quit a little over 1 year ago. Add fluticasone inhaler to use by daily to help with maintenance of symptoms. Use albuterol only as needed for shortness of breath and wheezing. Plan Follow-up in the office in 6 months with labs completed several days prior to visit. Orders: Orders Basic Metabolic Panel 6 Months I10 - Essential (primary) hypertension, R73.03 - Prediabetes Lipid Panel 6 Months I10 - Essential (primary) hypertension, R73.03 - Prediabetes Hemoglobin A1c 6 Months I10 - Essential (primary) hypertension, R73.03 - Prediabetes Medications: New fluticasone propionate 250 mcg/actuation 1 inh inhalation BID 180 ea 1RF Refilled albuterol sulfate 90 mcg/actuation 2 puffs PO Q4H PRN 8.5 grams 1RF bronchospasm Discontinued ofloxacin 0.3% Discontinued Reason: Doctor's Order 10 drps otic (ears) BID 147 days 10 mL 0RF
[2024-11-26 15:06] VITALS: BP 122/80; PULSE 72; RESP 16; TEMP 35.6; BMI 29.5
--- OUTSIDE RECORDS SUMMARY | 2024-11-26 17:48 | XMS_ITS | Patient Health Record ---
Author Organization [facility] Address [address] [place] [address] Care Team Providers Care Referral Coordinator Name Role Phone Edilberto Cannon MD Primary Care Provider Mic Giles Jr Unavailable Reason For Referral No Information Medications Medication SIG (Take, Route, Frequency, Duration) Notes Start Date End Date Status Meclizine HCl Active Nabumetone Active Lisinopril Active Ipratropium [place] Active Triamcinolone Acetonide Active ProAir HFA Active ALPRAZolam Active Colyte with Flavor Packs 240 GM As directed Orally Over the specified time. for 1 day(s) 07/29/2015 Active ibuprofen NEEDED Active Problems Problem Type SNOMED Code ICD Code Onset Dates Problem Status W/U Status Risk Notes Problem [id number] Colon cancer screening (Z12.11) Active confirmed Problem [id number] terminal carman current use of non-steroidal anti-inflammato sigifredo (NSAID) (Z79.1) Active confirmed Plan Of Treatment Future Test Test Name Order Date COLONOSCOPY 07/29/2015 Insurance Providers Payer Name Payer Address Payer Phone Subscriber Number Group Number Insured Name Patient Relationship to Insured Coverage Start Date Coverage End Date [facility] [address] [place] [phone] [id number] DARRIN CRUZ Self - patient is the insured Medical (General) History Medical History History ICD Code hypertension PANICH ATTACKS ARTHRITIS IN HIPS ASTHMA SINUS'S LEFT SIDE TENDENITIS BACK PAIN Surgical History Surgery Date(Month/Year) biopsy right breast 05/2014
== END 2024-11-26 15:56 | disposition home or self-care (01) ==
LOC: HO.HMCHD 14:55
PROVIDERS: PCP Internal Medicine; Visit Provider Physician Assistant
DX: I10 Essential (primary) hypertension (principal); R73.03 Prediabetes; E55.9 Vitamin D deficiency, unspecified; J44.89 Other specified chronic obstructive pulmonary disease

== ENCOUNTER 2024-11-26 16:19 | Outpatient (REF) | payer OTHER, SELFPAY ==
--- NOTE | ~2024-11-26 | CT_ITS ---
EXAMINATION: CT CHEST WITHOUT CONTRAST CLINICAL INFORMATION: Compression fracture of a thoracic vertebra, thickening of posterior right 10th rib COMPARISON: T-spine x-ray July 30, 2024 TECHNIQUE: Multidetector volumetric CT imaging of the chest was done. Axial MIP volume rendering provided. Sagittal and coronal reformatted images were obtained. This CT examination was performed using dose optimization techniques as appropriate, variously including the following: *Automated exposure control *Adjustment of mA and/or kV according to patient size (this includes techniques or standardized protocols for targeted exams where dose is matched to indication/reason for exam; i.e. extremities or head) *Use of iterative reconstruction technique FINDINGS: LUNGS: The lungs are clear with no evidence of inflammation or nodules. MEDIASTINUM: The mediastinum is normal. CORONARY ARTERY CALCIFICATION: Present PLEURA: There is no pleural effusion. No pleural mass or thickening. AXILLA: No lymphadenopathy. UPPER ABDOMEN: Diffuse fatty changes are present in the liver OSSEOUS STRUCTURES: Vertebral body height and alignment is preserved. No osseous abnormality is seen. Specifically, posterior right 10th rib is unremarkable. CT/CT chest wo IV con IMPRESSION: Unremarkable examination. No compression fracture of the thoracic spine or abnormality the posterior right 10th rib was identified. Fleischner guidelines were followed. Electronically signed by: Van Duvall MD 11/26/2024 06:13 PM EDT
== END 2024-11-26 16:20 | disposition home or self-care (01) ==
LOC: HO.CT 16:19
PROVIDERS: PCP Internal Medicine; Visit Provider Anesthesiology
DX: I10 Essential (primary) hypertension (principal); R73.03 Prediabetes; E55.9 Vitamin D deficiency, unspecified; J44.89 Other specified chronic obstructive pulmonary disease; S22.000A Wedge compression fracture of unspecified thoracic vertebra, initial encounter for closed fracture; R07.81 Pleurodynia; X58.XXXA Exposure to other specified factors, initial encounter; Y93.9 Activity, unspecified; Y92.9 Unspecified place or not applicable; Y99.9 Unspecified external cause status
CPT/HCPCS: 71250; 99212

== ENCOUNTER → 2024-11-26 16:21 | Outpatient (BNV) | payer OTHER, SELFPAY | PROVIDERS: PCP Internal Medicine; Visit Provider Radiology Diagnostic Radiology | DX: R07.89 Other chest pain (principal) | CPT/HCPCS: 71250 ==

== ENCOUNTER 2024-12-03 09:22 | Outpatient (AMB) | payer OTHER, SELFPAY ==
--- OUTSIDE RECORDS SUMMARY | 2024-12-03 09:37 | XMS_ITS | Clinical Summary ---
Author Organization [facility] Address [address] [facility] [address] [place] [address] Care Team Providers Care Cab Starter Name Role Phone Unavailable Primary Care Provider Unavailabl e Encounters Date Type Department Care Team Description 09/29/2024 Population Health Risk Score [facility] (C3) Department [address] [facility] [address] [place] [id number] Provider, Population Health Generic from Last 3 [...]
--- OUTSIDE RECORDS SUMMARY | 2024-12-03 09:37 | XMS_ITS | Patient Health Record ---
Author Organization [facility] Address [address] [place] [address] Care Team Providers Care Seals Engraver Name Role Phone Edilberto Cannon MD Primary Care Provider Mic Giles Jr Unavailable [phone] Reason For Referral No Information Medications Medication SIG (Take, Route, Frequency, Duration) Notes Start Date End Date Status Meclizine HCl Active Nabumetone Active Lisinopril Active Ipratropium [place] Active Triamcinolone Acetonide Active ProAir HFA Active ALPRAZolam Active Colyte with Flavor Packs 240 GM As directed Orally Over the specified time. for 1 day(s) 07/29/2015 Active ibuprofen NEEDED Active Problems Problem Type SNOMED Code ICD Code Onset Dates Problem Status W/U Status Risk Notes Problem [id number] Colon cancer screening (Z12.11) Active confirmed Problem [id number] [facility] current use of non-steroidal anti-inflammato sigifredo (NSAID) (Z79.1) Active confirmed Plan Of Treatment Future Test Test Name Order Date COLONOSCOPY 07/29/2015 Insurance Providers Payer Name Payer Address Payer Phone Subscriber Number Group Number Insured Name Patient Relationship to Insured Coverage Start Date Coverage End Date [facility] [address] [place] [phone] [id number] DARRIN CRUZ Self - patient is the insured Medical (General) History Medical History History ICD Code hypertension PANICH ATTACKS ARTHRITIS IN HIPS ASTHMA SINUS'S LEFT SIDE TENDENITIS BACK PAIN Surgical History Surgery Date(Month/Year) biopsy right breast 05/2014
[2024-12-03 09:41] VITALS: BP 131/74; PULSE 77; RESP 18; O2SAT 98
--- NOTE | 2024-12-03 09:41 | MHC.OFFVIS ---
Vital Signs 12/03/24 09:41 Weight 156 lb BP 131/74 Blood Pressure Location Rt brachial Position Sitting Respiration 18 Pulse 77 Pulse Source Pulse Oximeter Pulse Oximetry (%) 98 Oxygen Delivery Method Room Air Intake Visit Reasons: CT Scan Results 11/26 Enamel Dipper Required: No Allergies aspirin Adverse Reaction (Verified 12/03/24 09:41) rectal bleeding HPI Comments Details: Myrtle came back to my office to discuss the results of the CT scan which I sent her for after the therapeutic bilateral rib 10 intercostal injection. The anatomy of the right trip was seem to be pathological. However the CT scan did not demonstrate any pathological changes. I recommended patient to continue breathing exercises. No new appointment as needed, she needs to schedule an appointment as needed in the future. Prior: repeat transforaminal epiduralsteroid injection which was performed on 07/15/2024. She reports good pain relief after the procedure. She reports that pain in the back is not bothering her anymore. However she reports pain in the area of the posterior chest in the projection of bilateral 11 ribs approximately with radiation into the anterior chest under her breasts. She reports pain increased with her attempting to take a deep breath. 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 I offered her to perform bilateral rib 11 intercostal injection. I will schedule it as soon as possible. Prior to this procedure patient had transforaminal epidural steroid injection on 04/08/2024 with good pain results however she fell in June and injured her mid and upper back as well as lower back. Also possibility exists on her receiving compression fracture of the thoracic vertebra. I will send her for the x-ray of the thoracic spine. Prior: She received in 2021 transforaminal epidural steroid injection L3-L4 and L4-5 on the right. She is suffering from radiculopathy of the lumbar spine. This injection was very instrumental to help her pain. She reported excellent pain relief 1 month after procedure for the follow-up. She reported another 3 months of the pain relief after the therefore the total pain relief was up to 4 months. However to that she failed to schedule yet another appointment with us to schedule the injection. Now her pain is unbearable and it is 8 to 9/10. She requests me to repeat this procedure. I will schedule her as soon as possible. Prior: Very pleasant 61 years old female who is in my office under observation for significant period of time. We started her treatment here with the diagnostic MBB which was very effective for treating her pain. However following therapeutic MBB did not result in good pain relief. MRI was obtained and some minimal changes were found at L3-L4 L4-5 levels. The patient was offered in May of 2021 therapeutic transforaminal epidural steroid injection. She reported that injection done in May of 2021 resulted in prolonging continuous pain relieve until September. After the pain got returned she was scheduled for yet another transforaminal epidural steroid injection L3-L4 L4-5 on the right with Dr. Tobias. Unfortunately the patient reported minimal pain relief for 2 days only. This injection happened in October 28. She was given today an option to perform sprint procedure trial in the order to attempt to alleviate her pain [facility] Medical History (Updated 11/26/24 @ 15:34 by MONI Alvarez) Asthma with COPD Prediabetes Vitamin D deficiency HTN (hypertension) Other spondylosis with radiculopathy, lumbar region Surgical History History of colonoscopy (~05/03/20) Social History Housing: House Patient Tobacco Use Status: Never used Tobacco e-Cigarette/Vaping Use: Never Used service: No Current occupational status: retired Cognitive needs: No Hearing needs: No Vision needs: No Review of Systems Const All systems reviewed & are unremarkable except as noted in HPI and below ENT Reports Normal hearing present Neuro Reports Normal hearing present, Denies Abnormal speech present and Denies confusion Psych Denies confusion Physical Exam Vital Signs: Last Vital Signs Pulse 77 12/03/24 09:41 Resp 18 12/03/24 09:41 BP 131/74 12/03/24 09:41 Pulse Ox 98 12/03/24 09:41 Oxygen Delivery Method Room Air 12/03/24 09:41 Const General: cooperative, healthy appearing, no acute distress and alert; No confusion Nutritional Appearance: average body habitus Orientation/consciousness: patient oriented x3 and No confusion Limitations: no limitations HEENT Head: Yes normocephalic and Yes atraumatic Ears: hearing grossly normal bilaterally Eyes General: appearance normal, both eyes and all related structures Eyelids: Yes eyelids normal Pupils: Equal, round and reactive pupils present EOM: EOMs intact bilaterally Neck Neck: Yes normal visual inspection and Yes no JVD Chest Other: Tenderness on palpation in the projection of approximately both 11 ribs bilaterally. tenderness on palpation in projection of approximately T11 vertebral body. Pain increases with the patient taking slow deep breath. Resp Effort & Inspection: normal respiratory effort, able to speak in complete sentences and no audible wheezes Cardio Jugular venous distension: no JVD Back/Spine/Pelvis Other: SLR is positive on pain increase on the right. She points out to shooting pain in the location of between the 1st and 2nd toe on the right. Valsalva maneuver is positive for pain increase. Coughing and sneezing increase her pain in the back and results in shooting pain down the lower extremity on the right. Neuro General: patient oriented x3 and No confusion Cranial nerves: Yes Equal, round and reactive pupils present and Yes Normal hearing present Speech: No Abnormal speech present Assessment & Plan Assessment & Plan (1) Compression fracture of body of thoracic vertebra: Code(s): S22.000A - Wedge compression fracture of unspecified thoracic vertebra, initial encounter for closed fracture Category: Medical (2) Rib pain on right side: Code(s): R07.81 - Pleurodynia Category: Medical (3) Intercostal neuralgia: Code(s): G58.8 - Other specified mononeuropathies Category: Medical (4) Spondylosis of lumbar spine: Code(s): M47.816 - Spondylosis without myelopathy or radiculopathy, lumbar region Category: Medical (5) Sacroiliitis, not elsewhere classified: Code(s): M46.1 - Sacroiliitis, not elsewhere classified Category: Medical (6) Osteoarthritis of right hip: Code(s): M16.11 - Unilateral primary osteoarthritis, right hip Category: Medical Qualifiers: Osteoarthritis type: primary Qualified Code(s): M16.11 - Unilateral primary osteoarthritis, right hip (7) Myofascial pain syndrome, cervical: Code(s): M79.18 - Myalgia, other site Category: Medical (8) Other spondylosis with radiculopathy, lumbar region: Code(s): M47.26 - Other spondylosis with radiculopathy, lumbar region Category: Medical Plan On the x-ray thoracic spine of this patient there were no fractures obvious to discover. However when I was doing intercostal injections wider than normal dimensions of the right-sided rib 10 attracted my attention. I sent her for CT scan. However there were no pathological findings on that CT scan. Certainly no fracture. I recommend her to continue physical therapy I recommend her to continue breathing exercises. new appointment as needed Coding Level of Care Code Est Pt Level 3 (86857) Diagnoses Compression fracture of body of thoracic vertebra S22.000A Rib pain on right side R07.81 Intercostal neuralgia G58.8 Spondylosis of lumbar spine M47.816 Sacroiliitis, not elsewhere classified M46.1 Primary osteoarthritis of right hip M16.11 Osteoarthritis type: primary Myofascial pain syndrome, cervical M79.18 Other spondylosis with radiculopathy, lumbar region M47.26
== END 2024-12-03 09:59 | disposition home or self-care (01) ==
LOC: HO.PMC 09:22
PROVIDERS: PCP Physician Assistant; Visit Provider Anesthesiology
DX: S22.000A Wedge compression fracture of unspecified thoracic vertebra, initial encounter for closed fracture (principal); R07.81 Pleurodynia; G58.8 Other specified mononeuropathies; M47.816 Spondylosis without myelopathy or radiculopathy, lumbar region; M46.1 Sacroiliitis, not elsewhere classified; M16.11 Unilateral primary osteoarthritis, right hip; M79.18 Myalgia, other site; M47.26 Other spondylosis with radiculopathy, lumbar region
CPT/HCPCS: 99213

== ENCOUNTER → 2024-12-03 09:22 | Outpatient (BNVA) | payer OTHER, SELFPAY | PROVIDERS: PCP Physician Assistant; Visit Provider Anesthesiology | DX: R07.81 Pleurodynia (principal); M47.816 Spondylosis without myelopathy or radiculopathy, lumbar region; M46.1 Sacroiliitis, not elsewhere classified; M16.11 Unilateral primary osteoarthritis, right hip; M79.18 Myalgia, other site; M47.26 Other spondylosis with radiculopathy, lumbar region; G58.8 Other specified mononeuropathies; S22.000D Wedge compression fracture of unspecified thoracic vertebra, subsequent encounter for fracture with routine healing | CPT/HCPCS: 99212 ==

== ENCOUNTER 2024-12-10 08:29 | Outpatient (REF) | payer OTHER, SELFPAY ==
--- OUTSIDE RECORDS SUMMARY | 2024-12-10 08:40 | XMS_ITS | Patient Health Record ---
Author Organization [facility] Address [address] [place] [address] Care Team Providers Care Director Of Home Economics Name Role Phone Edilberto Cannon MD Primary Care Provider Mic Giles Jr Unavailable Reason For Referral No Information Medications Medication SIG (Take, Route, Frequency, Duration) Notes Start Date End Date Status Meclizine HCl Active Nabumetone Active Lisinopril Active Ipratropium [place] Active Triamcinolone Acetonide Active ProAir HFA Active ALPRAZolam Active Colyte with Flavor Packs 240 GM As directed Orally Over the specified time. for 1 day(s) 07/29/2015 Active ibuprofen NEEDED Active Problems Problem Type SNOMED Code ICD Code Onset Dates Problem Status W/U Status Risk Notes Problem 651116484 Colon cancer screening (Z12.11) Active confirmed Problem 691880395 longterm current use of non-steroidal anti-inflammato sigifredo (NSAID) (Z79.1) Active confirmed Plan Of Treatment Future Test Test Name Order Date COLONOSCOPY 07/29/2015 Insurance Providers Payer Name Payer Address Payer Phone Subscriber Number Group Number Insured Name Patient Relationship to Insured Coverage Start Date Coverage End Date [facility] [address] [place] [phone] [id number] DARRIN CRUZ Self - patient is the insured Medical (General) History Medical History History ICD Code hypertension PANICH ATTACKS ARTHRITIS IN HIPS ASTHMA SINUS'S LEFT SIDE TENDENITIS BACK PAIN Surgical History Surgery Date(Month/Year) biopsy right breast 05/2014
--- OUTSIDE RECORDS SUMMARY | 2024-12-10 08:40 | XMS_ITS | Clinical Summary ---
Author Organization [facility] Address [address] [place] [address] Care Team Providers Care Release Specialist Name Role Phone Unavailable Primary Care Provider Unavailabl e Encounters Date Type Department Care Team Description 09/29/2024 Population Health Risk Score [facility] (C3) Department [address] [place] [id number] Provider, Population Health Generic from Last 3 [...] 2023-2 5 season) 2024 Influenza Vaccine (#1) 2025 RSV Patients and Pa tients Aged [...]
== END 2024-12-10 08:30 | disposition home or self-care (01) ==
LOC: HO.MAMMO 08:29
PROVIDERS: PCP Physician Assistant; Visit Provider Physician Assistant
DX: Z12.31 Encounter for screening mammogram for malignant neoplasm of breast (principal)
CPT/HCPCS: 77063; 77067

== ENCOUNTER → 2024-12-10 08:45 | Outpatient (BNV) | payer OTHER, SELFPAY | PROVIDERS: PCP Physician Assistant; Visit Provider Internal Medicine | DX: Z12.31 Encounter for screening mammogram for malignant neoplasm of breast (principal) | CPT/HCPCS: 77063; 77067 ==

== ENCOUNTER 2025-01-06 09:05 | Outpatient (AMB) | payer OTHER, SELFPAY ==
--- NOTE | 2025-01-06 09:08 | A.OFFVIS_ITS ---
Vital Signs 01/06/25 09:08 01/06/25 09:28 Height 5 ft 1 in BP 140/95 H Position Sitting Pulse 115 H Intake Visit Reasons: 3 Months Allergies aspirin Adverse Reaction (Verified 01/06/25 09:08) rectal bleeding Medication List - Last Reconciled 01/06/25 by Wilma Mosher CNP acetaminophen (Tylenol) 650 mg PO QID PRN albuterol sulfate 90 mcg/actuation 2 puffs PO Q4H PRN amitriptyline 150 mg PO BEDTIME beclomethasone dipropionate 40 mcg/actuation (Qvar RediHaler) 2 inhalations inhalation BID cholecalciferol (vitamin D3) 50 mcg PO DAILY cholecalciferol (vitamin D3) 1,250 mcg PO QWEEK cyclobenzaprine 10 mg PO BEDTIME gabapentin 300 mg PO TID 30 days loratadine 10 mg PO DAILY losartan 100 mg PO DAILY nystatin 1 appl topical TID PRN oxybutynin chloride ER 5 mg PO DAILY 30 days triamcinolone acetonide 0.1% 1 appl topical BID PRN HPI Comments Details: She reports BP has been under better control with losartan 100mg, did not take medication yet this morning. Headaches may be a bit better. She was still having some headache, pounding-type pain to back of head, usually at night and would wake up with some headache and dizziness. She was taking OTC pain relief once a day at night for a long time, and before this she was taking ibuprofen every day. Headache was better in the morning after drinking coffee. No falls. Ringing in ears has resolved. No photophobia, sonophobia, nausea, or vomiting. She was taking cyclobenzaprine at bedtime. She was taking amitriptyline in the morning. Previously was getting some cramp-like pain was now happening to L side of head at night when relaxing with some pressure and ringing in L ear. No jaw pain or claudication. Following with pain management for LBP. Fell on black ice in 07/2024. Was getting cramp-like pain to R back side of head and gets brief pains to top of head when standing up at night. Some ringing in ears, worse at night. Headaches may be worse with rainy weather. Getting injections to low back and started on gabapentin by pain management. Body pains are worse with cold weather. Still has trouble falling asleep and maintaining sleep. Sleeping about 2-3 hours. Usually able to sleep during the day from 11a-2p. Retired 05/2021 from the [employer] after 16.5 years. Occasional blurring of vision. Hx of left occipital pain radiating into L judaism that she usually wakes with, both a pressure and sharp pain. Takes ibuprofen 600mg/day with relief, but then pain returns after few hours. CT scan of brain was normal. BP was elevated in ER, but was not started on medications for it at the time. Has not been prone to headaches previously. No history of head or neck trauma. Use to get dizziness with lightheadedness, vertigo, and blurred vision in the past and gets it periodically. Some LBP and R hip pain which she attributes to arthritis. [facility] Medical History (Updated 01/06/25 @ 09:31 by Wilma Mosher CNP) Tension headache Asthma with COPD Prediabetes Vitamin D deficiency HTN (hypertension) Other spondylosis with radiculopathy, lumbar region Surgical History History of colonoscopy (~05/03/20) Social History Housing: House Patient Tobacco Use Status: Never used Tobacco e-Cigarette/Vaping Use: Never Used service: No Current occupational status: retired Cognitive needs: No Hearing needs: No Vision needs: No Review of Systems Const Denies chills, Denies daytime sleepiness, Reports difficulty sleeping, Denies fatigue, Denies fever(s), Denies frequent falls, Reports headache(s), Denies increased appetite, Denies poor appetite, Denies snoring, Denies weakness, Denies weight gain and Denies weight loss Eyes Denies loss of vision ENT Denies vertigo, Denies dizziness, Reports headache(s) and Reports neck pain Card Denies chest pain at rest, Denies chest pain with activity, Denies syncope, Denies leg edema, Denies palpitations, Denies dyspnea and Denies dyspnea on exertion Resp Denies cough, Denies dyspnea, Denies dyspnea on exertion and Denies snoring GI Denies abdominal pain, Denies constipation, Denies heartburn, Denies diarrhea and Denies nausea Denies urinary frequency, Denies urinary incontinence and Denies urinary urgency Musc Denies abnormal gait, Reports back pain, Reports myalgias, Reports arthralgias, Reports neck pain, Denies numbness and Denies tingling Neuro Denies abnormal gait, Denies vertigo, Denies dizziness, Denies syncope, Denies frequent falls, Reports headache(s), Denies lack of coordination, Denies loss of vision, Denies memory loss, Denies numbness, Denies Other visual disturbances, Denies restless legs, Denies seizure-like activity, Denies tingling, Denies paresthesias, Denies tremor(s) and Denies weakness Psych Denies anxiety, Denies depression, Denies auditory hallucinations, Denies memory loss and Denies visual hallucinations Endo Denies fatigue and Denies palpitations Physical Exam Const Other: General Appearance:? normal, in no acute distress. Heart:? S1, S2 normal, no murmurs. Lungs:? clear anteriorly and posteriorly. Musculoskeletal:? normal. Extremities:? no edema. Psych:? alert, oriented, cognitive function intact, cooperative with exam. Neuro Other: Abnormal Neurological Findings:?none.? Mental Status: alert and oriented X 3. Normal attention, orientation, memory, and affect. Cranial Nerves: Pupils are equal, round, and reactive to light. External ocular muscles are intact. Visual rojas are full, no ptosis. Face is symmetrical, no facial weakness or droop. Facial sensations are normal. Tongue protrudes in midline. Palate elevates symmetrically. Shoulder shrugging is normal Motor Examination: Normal muscle tone, bulk and strength. No atrophy or fasciculations. No drift of the extended upper extremities. DTR 2+. Plantars are flexor. Sensory Exam: Normal light touch, temperature, pinprick, vibration, and joint- position sensations. Rhomberg sign is absent. Coordination: No ataxia. No titubation. Nblqaq-ii-zxwn, xhmo-ybdt-bpqj test, and rapid alternating movements were normal. Gait Exam: Within normal limits. Cerebellar Signs: Qpwitj-ny-yaak and zzzd-wy-zuvl is normal. No dysdiadochokinesia. Extrapyramidal System: No tremor, rigidity with normal facial expressions. No bradykinesia. No bradyphrenia. Normal arm swing and posture. No propulsion or retropulsion. Speech: Normal. No dysphasia or dysarthria. Assessment & Plan Assessment & Plan (1) Tension headache: Code(s): G44.209 - Tension-type headache, unspecified, not intractable Category: Medical Plan: She was advised to take amitriptyline at bedtime due to side effect of drowsiness. Continue amitriptyline 100mg 1.5 tablets, take at bedtime Continue cyclobenzaprine 10mg 1 tablet at bedtime as needed for muscle spasm/pain (2) Medication overuse headache: Code(s): G44.40 - Drug-induced headache, not elsewhere classified, not intractable Category: Medical Plan: She was educated on this concept and advised to stop using OTC pain relief (and other OTC analgesics) completely. Plan Meds tried: topiramate, amitriptyline, cyclobenzaprine, beta blockers contraindicated due to asthma Medications: Changed From cyclobenzaprine 10 mg PO BEDTIME To cyclobenzaprine 10 mg PO BEDTIME PRN 30 tabs 3RF muscle spasm, pain 30 days From amitriptyline 150 mg PO BEDTIME To amitriptyline 150 mg (1.5 x 100 mg) PO BEDTIME 135 tabs 1RF 90 days Coding Level of Care Code Est Pt Level 4 (91295) Diagnoses Tension headache G44.209 Medication overuse headache G44.40
--- OUTSIDE RECORDS SUMMARY | 2025-01-06 09:24 | XMS_ITS | Patient Health Record ---
Author Organization [facility] Address [address] [place] [address] Care Team Providers Care Spear Fisher Name Role Phone Kassandra (RETIRED) Edilberto WILSON Primary Care Provide Mic Castle Jr Unavailable [phone] Reason For Referral No Information Medications Medication SIG (Take, Route, Frequency, Duration) Notes Start Date End Date Status Meclizine HCl Active Nabumetone Active Lisinopril Active Ipratropium [place] Active Triamcinolone Acetonide Active ProAir HFA Active ALPRAZolam Active Colyte with Flavor Packs 240 GM As directed Orally Over the specified time. for 1 day(s) 07/29/2015 Active ibuprofen NEEDED Active Problems Problem Type SNOMED Code ICD Code Onset Dates Problem Status W/U Status Risk Notes Problem [id number] Colon cancer screening (Z12.11) Active confirmed Problem 070387532 intermediate card tender current use of non-steroidal anti-inflammato sigifredo (NSAID) (Z79.1) Active confirmed Plan Of Treatment Future Test Test Name Order Date COLONOSCOPY 07/29/2015 Insurance Providers Payer Name Payer Address Payer Phone Subscriber Number Group Number Insured Name Patient Relationship to Insured Coverage Start Date Coverage End Date [facility] [address] [place] [phone] [id number] DARRIN CRUZ Self - patient is the insured Medical (General) History Medical History History ICD Code hypertension PANICH ATTACKS ARTHRITIS IN HIPS ASTHMA SINUS'S LEFT SIDE TENDENITIS BACK PAIN Surgical History Surgery Date(Month/Year) biopsy right breast 05/2014
[2025-01-06 09:28] VITALS: BP 140/95; PULSE 115
== END 2025-01-06 09:37 | disposition home or self-care (01) ==
LOC: HO.HSM 09:06
PROVIDERS: PCP Internal Medicine; Referring Provider Internal Medicine; Visit Provider Registered Nurse
DX: G44.209 Tension-type headache, unspecified, not intractable (principal); G44.40 Drug-induced headache, not elsewhere classified, not intractable
CPT/HCPCS: 99214

== ENCOUNTER → 2025-01-06 09:05 | Outpatient (BNVA) | payer OTHER, SELFPAY | PROVIDERS: PCP Internal Medicine; Referring Provider Internal Medicine; Visit Provider Registered Nurse | DX: G44.209 Tension-type headache, unspecified, not intractable (principal); G44.40 Drug-induced headache, not elsewhere classified, not intractable; Z79.899 Other long term (current) drug therapy | CPT/HCPCS: 99212 ==

== ENCOUNTER 2025-02-03 07:53 | Outpatient (AMB) | payer OTHER, SELFPAY ==
--- OUTSIDE RECORDS SUMMARY | 2025-02-03 07:57 | XMS_ITS | Clinical Summary ---
Author Organization [facility] Address [address] [place] [address] Care Team Providers Care Assembler Dielectric Heater Name Role Phone Unavailable Primary Care Provider Unavailabl e Social History Tobacco Use Types Packs/Day Years [...] Vaccines (1 of 2) 2011 COVID-19 Vaccine (1 - 2023-2 5 season) 2025 Influenza Vaccine (#1) 2025 RSV Patients and [...]
--- OUTSIDE RECORDS SUMMARY | 2025-02-03 07:57 | XMS_ITS | Patient Health Record ---
Author Organization [facility] Address [address] [place] [address] Care Team Providers Care Pupil Personnel Services Director Name Role Phone Kassandra (RETIRED) Edilberto WILSON Primary Care Provide Mic Castle Jr Unavailable Reason For Referral No Information Medications Medication SIG (Take, Route, Frequency, Duration) Notes Start Date End Date Status Meclizine HCl Active Nabumetone Active Lisinopril Active Ipratropium [place] Active Triamcinolone Acetonide Active ProAir HFA Active ALPRAZolam Active Colyte with Flavor Packs 240 GM As directed Orally Over the specified time. for 1 day(s) 07/29/2015 Active ibuprofen NEEDED Active Problems Problem Type SNOMED Code ICD Code Onset Dates Problem Status W/U Status Risk Notes Problem 073245095 Colon cancer screening (Z12.11) Active confirmed Problem 511625275 intermediate current use of non-steroidal anti-inflammato sigifredo (NSAID) (Z79.1) Active confirmed Plan Of Treatment Future Test Test Name Order Date COLONOSCOPY 07/29/2015 Insurance Providers Payer Name Payer Address Payer Phone Subscriber Number Group Number Insured Name Patient Relationship to Insured Coverage Start Date Coverage End Date [facility] [address] [place] [phone] [id number] DARRIN CRUZ Self - patient is the insured Medical (General) History Medical History History ICD Code hypertension PANICH ATTACKS ARTHRITIS IN HIPS ASTHMA SINUS'S LEFT SIDE TENDENITIS BACK PAIN Surgical History Surgery Date(Month/Year) biopsy right breast 05/2014
--- NOTE | 2025-02-03 08:00 | A.OFFVIS_ITS ---
Intake Visit Reasons: follow up/ UA Intake Note: Patient is present for UA F/U Urology Medication:NONE Antibiotic Allergy:NONE Blood Thinner:NONE Veterinary Hospital Attendant Required: No Veterinary Hospital Attendant Services: Veterinary Hospital Attendant Present Veterinary Hospital Attendant Name: Geni [id number] Allergies aspirin Adverse Reaction (Verified 02/03/25 10:15) rectal bleeding Medication List - Last Reconciled 02/03/25 by MANISHA Pal acetaminophen (Tylenol) 650 mg PO QID PRN beclomethasone dipropionate 40 mcg/actuation (Qvar RediHaler) 2 inhalations inhalation BID cholecalciferol (vitamin D3) 1,250 mcg PO QWEEK cholecalciferol (vitamin D3) 50 mcg PO DAILY oxybutynin chloride ER 5 mg PO DAILY 90 days sulfamethoxazole-trimethoprim 800-160 mg (Bactrim DS) 1 tab PO BID 5 days HPI Comments Details: Myrtle is a pleasant Greenlandic-speaking female patient of Dr. Rosales. She has a past medical history of headaches, asthma with COPD, prediabetes, vitamin-D deficiency, hypertension, and spondylosis with radiculopathy. She presents to the office today for follow-up of her lower urinary tract symptoms (nocturia and urinary frequency). Of note, patient was seen approximately six months ago as a new patient with Dr. Velasquez at which time she was prescribed oxybutynin and follows up today for review. In discussion with the patient today she does report improvement in nocturia and urinary frequency with oxybutynin. However she does describe new onset of foul-smelling urine. In office urinalysis results reviewed 2+ leukocytes positive nitrates. We did discussed potential urinary tract infection given positive urinalysis and patient reporting foul- smelling urine. She denies incontinence, hematuria, dysuria, changes to urinary stream, flank pain, fever, and or chills. She is requesting refill on oxybutynin. We discussed obtaining retroperitoneal ultrasound for further assessment evaluation. She does report a previous history of sling procedure with Dr. Velarde 2019 for stress incontinence. She denies any signs or symptoms of sleep apnea. All questions were answered. She otherwise offers no other issues or concerns at this time. FORMERLY [facility], [facility] Medical History (Updated 02/03/25 @ 08:26 by MANISHA Pal) Tension headache Asthma with COPD Prediabetes Vitamin D deficiency HTN (hypertension) Other spondylosis with radiculopathy, lumbar region Surgical History History of colonoscopy (~05/03/20) Social History Housing: House Patient Tobacco Use Status: Never used Tobacco e-Cigarette/Vaping Use: Never Used service: No Current occupational status: retired Cognitive needs: No Hearing needs: No Vision needs: No Review of Systems Const All systems reviewed & are unremarkable except as noted in HPI and below Physical Exam Const General: cooperative, healthy appearing, comfortable, no acute distress, well developed, alert and awake Orientation/consciousness: patient oriented x3 Limitations: language barrier HEENT Head: Yes normal to inspection, Yes normocephalic and Yes atraumatic Ears: hearing grossly normal bilaterally Eyes General: appearance normal, both eyes and all related structures Neck Neck: Yes normal visual inspection and Yes trachea midline Chest Chest palpation & inspection: normal inspection of the chest Resp Effort & Inspection: normal respiratory effort and able to speak in complete sentences Cardio Rate: regular rate GI Inspection: Yes normal to inspection General: Yes no CVA tenderness Back/Spine/Pelvis Back: no CVA tenderness Skin General skin exam: no rashes or lesions noted Neuro General: patient oriented x3 Extrem General: Yes normal to inspection Psych Appearance: grossly normal and well kempt Mental Status: mental status grossly normal Speech and movement: Normal speech and movement present and Clear speech present Affect: normal affect Attitude: cooperative Thought process: Normal thought process present Thought content: Normal thought content present Insight: Fair insight present (Psych) Judgement: Fair judgement present (Psych) Results AMB Urinalysis, Automated UA Leukoctes 125 David/uL Last Edit by ISAIAS Carrera on 02/03/25 08:16 UA Nitrite Positive Last Edit by ISAIAS Carrera on 02/03/25 08:16 UA Urobilinogen 0.2 mg/dL Last Edit by ISAIAS Carrera on 02/03/25 08:1 6 UA Protein 15 mg/dL Last Edit by ISAIAS Carrera on 02/03/25 08:16 UA pH 7.0 Last Edit by ISAIAS Carrera on 02/03/25 08:16 UA Blood 10 Josr/uL Last Edit by ISAIAS Carrera on 02/03/25 08:16 UA Specific [place] 1.010 Last Edit by ISAIAS Carrera on 02/03/25 08: 16 UA Ketone Negative Last Edit by ISAIAS Carrera on 02/03/25 08:16 UA Bilirubin 0 mg/dL Last Edit by ISAIAS Carrera on 02/03/25 08:16 UA Glucose 0 mg/dL Last Edit by ISAIAS Carrera on 02/03/25 08:16 Results Reviewed Results Reviewed: Laboratory Last Values Urine pH (Auto) 7.0 02/03/25 08:15 Specific [place] (Auto) 1.010 02/03/25 08:15 Urine Protein (Auto) 15 mg/dL 02/03/25 08:15 Glucose (UA)(Auto) 0 mg/dL 02/03/25 08:15 Urine Ketones (Auto) Negative 02/03/25 08:15 Urine Blood (Auto) 10 Josr/uL 02/03/25 08:15 Urine Nitrite (Auto) Positive 02/03/25 08:15 Urine Bilirubin (Auto) 0 mg/dL 02/03/25 08:15 Urine Urobilinogen (Auto) 0.2 mg/dL 02/03/25 08:15 Leukocyte Esterase (Auto) 125 David/uL 02/03/25 08:15 Assessment & Plan Assessment & Plan (1) Urinary tract infection: Code(s): N39.0 - Urinary tract infection, site not specified Category: Medical Plan In office urinalysis results with the patient today; will send for urine culture. Start Bactrim as discussed and prescribed. Continue oxybutynin; refill provided. We discussed potential causes of urinary tract infection. We discussed worsening symptoms. Will obtain retroperitoneal ultrasound for further assessment evaluation. We discussed importance of adequate hydration in relation to urinary tract infection as well as well-being. All questions were answered. Follow-up in 1-3 months with imaging and PVR; or sooner with any issues, concerns, and or questions. Orders: Orders US retroperitoneal comp Today N39.0 - Urinary tract infection, site not specified Urine Culture Today N39.0 - Urinary tract infection, site not specified AMB Urinalysis Automated Today Z13.9 - Encounter for screening, unspecified Medications: New sulfamethoxazole-trimethoprim 800-160 mg (Bactrim DS) 1 tab PO BID 10 tabs 0RF 5 days N39.0 - Urinary tract infection, site not specified Changed From oxybutynin chloride ER 5 mg PO DAILY 30 days 30 tabs 1RF N32.81 - Overactive bladder, R39.15 - Urgency of urination To oxybutynin chloride ER 5 mg PO DAILY 90 tabs 1RF 90 days N32.81 - Overactive bladder, R39.15 - Urgency of urination Patient Instructions: The patient had an opportunity to ask questions regarding the treatment plan. All questions were answered. Physical exam, labs, and imaging were discussed and reviewed in detail. As well as risks, benefits, and discussion of treatment choices. No major barriers to understanding were identified. The patient expressed understanding and agreement with the above treatment plan. The patient was made aware they should contact our office by phone for worsening of their current condition, the appearance of new symptoms, or with any questions or concerns. Compliance is encouraged with any medications and follow up testing that is ordered. It is a privilege to be allowed the opportunity to participate in? your urological care.? Again, if you have any questions or concerns If you have any questions or concerns please do not hesitate to contact me. The office is [phone]. This note is constructed using voice recognition software. While every effort [place] s been made to ensure accuracy printed circuit designer errors may have been included. Yours sincerely, MANISHA Pal Coding Level of Care Code Est Pt Level 4 (14237) Diagnoses Urinary tract infection N39.0
== END 2025-02-03 08:28 | disposition home or self-care (01) ==
LOC: HO.HUSH 07:53
PROVIDERS: PCP Internal Medicine; Visit Provider Nurse Practitioner Family
DX: Z13.9 Encounter for screening, unspecified (principal); N39.0 Urinary tract infection, site not specified
CPT/HCPCS: 99214

== ENCOUNTER 2025-02-03 07:53 | Outpatient (REF) | payer OTHER, SELFPAY | END 2025-02-03 07:54 | disposition home or self-care (01) | LOC: HO.LAB 07:53 | PROVIDERS: PCP Internal Medicine; Visit Provider Nurse Practitioner Family | DX: N39.0 Urinary tract infection, site not specified (principal); Z79.899 Other long term (current) drug therapy | CPT/HCPCS: 81003; 87086; 87088; 87186; 99212 ==

== ENCOUNTER 2025-04-21 09:06 | Outpatient (REF) | payer OTHER, SELFPAY ==
--- NOTE | ~2025-04-21 | US_ITS ---
CLINICAL HISTORY: N39.0 - Urinary tract infection, site not specified US retroperitoneum Comparison: None provided Findings: Right kidney normal size and echotexture, 10.4 cm length. No hydronephrosis, mass or calculus. 5 mm simple cortical cyst in the midpole. Normal color flow. Left kidney normal size and echotexture, 11.0 cm in length. No calculus or hydronephrosis. Simple cyst 1.4 cm in the upper pole, intrarenal hypoechoic avascular lesion with minimally increased through transmission in the lower pole 1 cm. Normal color flow. Urinary bladder is unremarkable. Prevoid volume 234 mL. Postvoid volume 71 mL. Ureteral jets are visualized bilaterally Impression: 1. Left renal lower pole hypoechoic lesion 1 cm, probably complex cyst, renal MRI would be confirmatory. 2. Bilateral simple renal cysts. 3. Incomplete bladder emptying. This document has been electronically signed by: Neyda Parry MD on 04/21/2025 16:29:07
== END 2025-04-21 09:07 | disposition home or self-care (01) ==
LOC: HO.US 09:06
PROVIDERS: PCP Physician Assistant; Visit Provider Nurse Practitioner Family
DX: N39.0 Urinary tract infection, site not specified (principal)
CPT/HCPCS: 76770

== ENCOUNTER → 2025-04-21 09:08 | Outpatient (BNV) | payer OTHER, SELFPAY | PROVIDERS: PCP Physician Assistant; Visit Provider Radiology Diagnostic Radiology | DX: N28.1 Cyst of kidney, acquired (principal) | CPT/HCPCS: 76770 ==

== ENCOUNTER 2025-05-07 08:18 | Outpatient (REF) | payer OTHER, SELFPAY ==
[2025-05-07 11:27] LABS: Anion Gap 13 (12-20); Blood Urea Nitrogen 15 mg/dL (9-16); Calcium 9.8 mg/dL (8.4-10.2); Carbon Dioxide 26 mmol/L (22-29); Chloride 108 mmol/L (96-108); Cholesterol 115 mg/dL (<200); Estimated Glomerular Filt Rate 55; HDL Cholesterol 38 mg/dL (>40); Potassium 4.0 mmol/L (3.3-5.1); Sodium 143 mmol/L (135-145); Triglycerides 93 mg/dL (<150)
[2025-05-08 04:54] LABS: HBc Num1 0.30 S/CO (0.00-0.79); HIV Num 1 0.10 S/CO (0.00-0.99); ~HepC Num1 0.10 S/CO (0.00-0.79); ~Hepatitis C Antibody Nonreactive (Nonreactive)
[2025-05-08 06:00] LABS: Syphilis Screen Nonreactive (Nonreactive)
== END 2025-05-07 08:19 | disposition home or self-care (01) ==
LOC: HO.LAB 08:18
PROVIDERS: Absent Provider Physician Assistant; PCP Physician Assistant; Visit Provider Advanced Practice Midwife
DX: Z01.419 Encounter for gynecological examination (general) (routine) without abnormal findings (principal); Z20.2 Contact with and (suspected) exposure to infections with a predominantly sexual mode of transmission; I10 Essential (primary) hypertension; R73.03 Prediabetes; N81.6 Rectocele; Z87.891 Personal history of nicotine dependence; Z11.4 Encounter for screening for human immunodeficiency virus [HIV]; Z11.59 Encounter for screening for other viral diseases
CPT/HCPCS: 36415; 80048; 80061; 83036; 86704; 86780; 86803; 87389

== ENCOUNTER 2025-05-07 08:18 | Outpatient (AMB) | payer OTHER, SELFPAY ==
--- NOTE | 2025-05-07 08:31 | A.OFFVIS_ITS ---
Vital Signs 05/07/25 08:49 Height 5 ft 1 in Weight 159 lb BMI 30.0 BP 138/84 Blood Pressure Location Rt brachial Position Sitting Intake Visit Reasons: New patient Annual Intake Note: here for annual . has a sling for bladder due to incontinence. Fuel Verification Technician Required: No Information Interpreted: non-clinical & clinical Internal Audit Consultant: Internal Audit Consultant Present (kyra) Accompanied by: Self / Same As Patient Allergies aspirin Adverse Reaction (Verified 05/07/25 08:37) rectal bleeding Medication List - Last Reconciled 05/07/25 by Nevin Carroll LPN acetaminophen (Tylenol) 650 mg PO QID PRN beclomethasone dipropionate 40 mcg/actuation (Qvar RediHaler) 2 inhalations in halation BID cholecalciferol (vitamin D3) 1,250 mcg PO QWEEK cholecalciferol (vitamin D3) 50 mcg PO DAILY gabapentin 300 mg PO TID 30 days loratadine (Allergy Relief (loratadine)) 10 mg PO DAILY oxybutynin chloride ER 5 mg PO DAILY 90 days sulfamethoxazole-trimethoprim 800-160 mg (Bactrim DS) 1 tab PO BID 5 days Is last menstrual period known: No Do you need a note to return to daycare/school/sports/work: No HPI Comments Details: Patient is a postmenopausal woman 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 Corporate Securities Research Analyst concerns: external non tender bump noted w/washing. History of bladder sling, over active bladder. Currently not sexually active >10yrs. Denies any vaginal dryness or irritation. STI testing offered; she accepts. Attempting to eat a healthy diet with calcium and vitamin D and stays active with exercise-walks. Last pap smear; 20+, negative. Last mammogram; 2024. Colonoscopy is UTD. [facility] Medical History Presence of suburethral sling Tension headache Asthma with COPD Prediabetes Vitamin D deficiency HTN (hypertension) Other spondylosis with radiculopathy, lumbar region Surgical History History of colonoscopy (~05/03/20) Social History Housing: House Patient Tobacco Use Status: Former Tobacco user Tobacco use type: Cigarette e-Cigarette/Vaping Use: Never Used service: No Current occupational status: retired Cognitive needs: No Hearing needs: No Vision needs: No Female Reproductive History Menstrual Age of Menarche: 11 Date of menopause: 05/07/10 Age of menopause: 45 Total pregnancies: 4 Number of Living Children: 3 Ab spontaneous: 1 Date of last pap smear: 05/07/00 History of abnormal pap smear: No Date of Mammogram: 12/10/24 Review of Systems Const All systems reviewed & are unremarkable except as noted in HPI and below Reports as per HPI Eyes Reports no additional complaints ENT Reports no additional complaints Card Reports no additional complaints Resp Reports no additional complaints GI Reports as per HPI and Reports no additional complaints Reports as per HPI Musc Reports no additional complaints Skin/Breast Reports as per HPI Neuro Reports no additional complaints Psych Reports no additional complaints Endo Reports no additional complaints [place]/Lymph Reports no additional complaints Aller/Immun Reports no additional complaints Physical Exam Vital Signs: Last Vital Signs BP 138/84 05/07/25 08:49 BMI result Body Mass Index 30.0 Const General: cooperative, healthy appearing, no acute distress, well developed and alert Orientation/consciousness: patient oriented x3 HEENT Head: Yes normal to inspection Eyes General: appearance normal, both eyes and all related structures Neck Neck: Yes normal visual inspection Thyroid: Thyroid normal Chest Chest palpation & inspection: normal inspection of the chest and other (no puckering, dimpling, peau de orange, retraction, discharge, masses) Breast/axilla inspection: normal inspection of the breasts Breast/axilla palpation: normal palpation of the breasts Resp Effort & Inspection: normal respiratory effort GI Inspection: Yes normal to inspection Palpation (GI): Soft to palpation Rectal Exam - Female: deferred Other: External bilateral labia-multiple small non tender, firm sebaceous glands. General: Yes bladder normal to palpation External Female Exam: normal external appearance and normal appearance of the urethra Speculum Exam - Vagina: normal palpation and vagina atrophic Speculum Exam - Cervix: normal palpation and Other cervical findings present (atrophic bled w/pap) Bimanual exam- vagina & uterus: normal bimanual exam, normal palpation, uterine size normal, bladder normal to palpation, normal palpation and non-tender Bimanual Exam- Adnexa, other: no masses and rectocele Skin General skin exam: no rashes or lesions noted Rashes: no rashes Neuro General: patient oriented x3 Cognition (Neuro): normal cognition Extrem General: Yes normal to inspection Psych Attitude: cooperative Thought process: Normal thought process present Assessment & Plan Assessment & Plan (1) Encounter for well woman exam with routine gynecological exam: Code(s): Z01.419 - Encounter for gynecological examination (general) (routine) without abnormal findings Category: Medical Plan: Discussed: Current recommendations for pap smears per ASCCP guidelines. Breast awareness, periodic self breast exams and yearly mammogram. Maintain a healthy lifestyle, well balanced diet including Calcium 1,200 mg and Vitamin D 600 IU daily, and routine exercise. Use of condoms for STI prevention if indicated. Contact the office with any postmenopausal bleeding. Patient verbalizes understanding and agrees to the plan of care. She was given opportunity to ask questions and all questions were answered to the best of my ability. RTO in 1 year for annual deputy insurance commissioner exam. This note is constructed using voice recognition software. While every effort has been made to ensure accuracy, correctional manager errors may have been included. (2) Rectocele: Code(s): N81.6 - Rectocele Plan Counseled regarding findings for rectocele. When to seek follow up care for referral to UroGyne. Use of Internet pictures and information provided. She is not interested in a referral, she was just worried about what it was and feels better now knowing. The patient expressed understanding and agreement with the plan of care. All of her questions and concerns were addressed to the best of my ability. Orders: Orders Hepatitis C Antibody Reflex Today Z20.2 - Contact with and (suspected) exposure to infections with a predominantly sexual mode of transmission HIV Ab/Ag Today Z20.2 - Contact with and (suspected) exposure to infections with a predominantly sexual mode of transmission Hepatitis B Core Antibody Today Z20.2 - Contact with and (suspected) exposure to infections with a predominantly sexual mode of transmission Syphilis Screen Today Z20.2 - Contact with and (suspected) exposure to infections with a predominantly sexual mode of transmission HPV High risk Today Z01419 - Encounter for gynecological examination (general) (routine) without abnormal findings Pap Smear Today Z01419 - Encounter for gynecological examination (general) (routine) without abnormal findings CT NG by PCR Vag/Cerv Today Z11.3 - Encounter for screening for infections with a predominantly sexual mode of transmission Bacterial Vaginosis Panel Today Z11.3 - Encounter for screening for infections with a predominantly sexual mode of transmission Coding Level of Care Code New Pt Prev Care 40-64y(63616) Diagnoses Encounter for well woman exam with routine gynecological exam Z01.419 Rectocele N81.6
--- OUTSIDE RECORDS SUMMARY | 2025-05-07 08:33 | XMS_ITS | Clinical Summary ---
Author Organization [employer] Address [address] [place] [address] Care Team Providers Care Transformer Maker Name Role Phone Unavailable Primary Care Provider [...] of 2) 2011 COVID-19 Vaccine ( - 2024-2 6 season) 2025 Influenza Vaccine (#1) 2025 RSV [...]
--- OUTSIDE RECORDS SUMMARY | 2025-05-07 08:33 | XMS_ITS | Patient Health Record ---
Author Organization [facility] Address [address] [place] [address] Care Team Providers Care Voip Engineer Name Role Phone Kassandra (RETIRED) Edilberto WILSON Primary Care Provide Mic Castle Jr Unavailable [phone] Reason For Referral No Information Medications Medication SIG (Take, Route, Frequency, Duration) Notes Start Date End Date Status Meclizine HCl Active Nabumetone Active Lisinopril Active Ipratropium Perry Active Triamcinolone Acetonide Active ProAir HFA Active ALPRAZolam Active Colyte with Flavor Packs 240 GM Solution Reconstituted As directed Orally Over the specified time.; Duration: 1 day(s) 07/29/2015 Active ibuprofen NEEDED Active Social History Social History Additional Details Category Social Info Options Details Miscellaneous: Marital status: single Occupation: [employer] Problems Problem Type SNOMED Code ICD Code Onset Dates Problem Status W/U Status Risk Notes Problem Colon cancer screening (273653304) Colon cancer screening (Z12.11) Active confirmed Problem [facility] current use of non-steroidal anti-inflammat ory drug ([id number] 03) termite control servicer current use of non-steroidal anti-inflammat ories (NSAID) (Z79.1) Active confirmed Plan Of Treatment Future Test Test Name Order Date COLONOSCOPY 07/29/2015 Insurance Providers Payer Name Payer Address Payer Phone Subscriber Number Group Number Insured Name Patient Relationship to Insured Coverage Start Date Coverage End Date [facility] [address] [facility] [id number] [phone] [id number] DARRIN CRUZ Self - patient is the insured Medical (General) History Medical History History ICD Code hypertension PANICH ATTACKS ARTHRITIS IN HIPS ASTHMA SINUS'S LEFT SIDE TENDENITIS BACK PAIN Surgical History Surgery Date(Month/Year) biopsy right breast 05/2014
[2025-05-07 08:49] VITALS: BP 138/84
== END 2025-05-07 09:30 | disposition home or self-care (01) ==
LOC: HO.HWS 08:18
PROVIDERS: PCP Internal Medicine; Visit Provider Advanced Practice Midwife
DX: Z01.419 Encounter for gynecological examination (general) (routine) without abnormal findings (principal); N81.6 Rectocele
CPT/HCPCS: 99386; 99459

== ENCOUNTER 2025-05-07 09:35 | Outpatient (REF) | payer OTHER, SELFPAY ==
[2025-05-08 00:43] LABS: Bacterial Vaginosis PCR NEGATIVE (Negative); Candida Group PCR NOT DETECTED (Not Detect); Candida glab krusei PCR NOT DETECTED (Not Detect); Trichomonas vaginalis PCR NOT DETECTED (Not Detect)
[2025-05-08 00:51] LABS: CT PCR NOT DETECTED (Not Detect.); NG PCR NOT DETECTED (Not Detect.)
== END 2025-05-07 09:36 | disposition home or self-care (01) ==
LOC: HO.LNP 09:35
PROVIDERS: Visit Provider Advanced Practice Midwife
DX: Z01.419 Encounter for gynecological examination (general) (routine) without abnormal findings (principal); Z20.2 Contact with and (suspected) exposure to infections with a predominantly sexual mode of transmission; Z11.51 Encounter for screening for human papillomavirus (HPV)
CPT/HCPCS: 81515; 87491; 87591; 87626; 88175

== ENCOUNTER 2025-05-20 08:44 | Outpatient (AMB) | payer OTHER, SELFPAY ==
--- NOTE | 2025-05-20 08:47 | MHC.PC.OV ---
Vital Signs 05/20/25 08:48 Height 5 ft 1 in Weight 72.688 kg BMI 30.3 BP 142/84 H Pulse 64 Pulse Source Pulse Oximeter Temp 97.0 F Temp Source Temporal Artery Scan Intake Visit Reasons: 6 Month F/U Gps Field Data Collector Required: No Accompanied by: Self / Same As Patient Allergies aspirin Adverse Reaction (Verified 05/20/25 08:52) rectal bleeding Medication List - Last Reconciled 05/20/25 by MONI Alvarez acetaminophen (Tylenol) 650 mg PO QID PRN albuterol sulfate 90 mcg/actuation (Ventolin HFA) 2 puffs inhalation Q4H PRN amitriptyline 150 mg PO BEDTIME cholecalciferol (vitamin D3) 50 mcg PO DAILY cyclobenzaprine 10 mg PO BEDTIME PRN 30 days gabapentin 300 mg PO TID 30 days loratadine (Allergy Relief (loratadine)) 10 mg PO DAILY losartan 100 mg PO DAILY oxybutynin chloride ER 5 mg PO DAILY 90 days Tobacco use date assessed: 05/20/25 Fall risk assessment: No Falls in past year Last assessed Fall Risk: 05/20/25 Dental Screening Dental Screen Date: 05/20/25 Did you have a dental visit in the last 12 months?: Yes Did you have a dental problem in the last 6 months where you did not have access to dental care?: No HPI HPI Comments History of Present Illness Details 64-year-old female with history of prediabetes, hypertension, vitamin-D deficiency, chronic pain with lumbar radiculopathy and osteoporosis as well as compression fracture in the thoracic vertebrae, asthma/COPD overlap, obesity presenting to the office today for management of chronic conditions. Asthma/COPD overlap-maintenance inhaler was not approved by insurance. Reports she is still using albuterol on a nightly basis as well as outside in cold weather. Prediabetes-hemoglobin A1c increased to 6.1% Hypertension-blood pressure 138/88 on recheck. Has not yet taken her medications this morning. Chronic pain-on amitriptyline, cyclobenzaprine, gabapentin Vitamin-D deficiency-has been taking 89074 units of vitamin-D weekly since last visit 6 months ago. She is also taking 2000 units daily Obesity-BMI 30.3. Has not been compliant with diet. Reports she does have an thelma in her phone to track her intake. She is exercising at home Concerns: Hair loss since initiating high-dose vitamin-D Nocturnal heartburn-reports she is washing her diet. She does not eat within 2 hours of bedtime. No dysphagia or globus sensation. Does reflux ROS: See HPI EXAM: Constitutional - Awake and Alert, No apparent distress Eyes - PERRL Cardiovascular - S1S2, RRR, No edema Respiratory - Normal lung expansion, Normal respiratory effort, No respiratory distress, CTA bilaterally Extremities - no calf tenderness bilaterally, no swelling Skin - Warm/Dry Neurological - Alert & oriented x3 Psychological - Appropriate affect [facility] History Presence of suburethral sling Tension headache Asthma with COPD Prediabetes Vitamin D deficiency HTN (hypertension) Other spondylosis with radiculopathy, lumbar region Surgical History History of colonoscopy (~05/03/20) Social History Housing: House Patient Tobacco Use Status: Former Tobacco user Tobacco use type: Cigarette e-Cigarette/Vaping Use: Never Used service: No Current occupational status: retired Cognitive needs: No Hearing needs: No Vision needs: No Female Reproductive History Menstrual Age of Menarche: 11 Date of menopause: 05/07/10 Questionnaire PHQ-9 Over the last 2 weeks, how often have you been bothered by any of the following problems? 1. Little interest or pleasure in doing things: not at all 2. Feeling down, depressed, or hopeless: not at all 3. Trouble falling or staying asleep, or sleeping too much: not at all 4. Feeling tired or having little energy: not at all 5. Poor appetite or overeating: not at all 6. Feeling bad about yourself - or that you are a failure or have let yourself or your family down: not at all 7. Trouble concentrating on things, such as reading the newspaper or watching television: not at all 8. Moving or speaking so slowly that other people could have noticed. Or the opposite - being so fidgety or restless that you have been moving around a lot more than usual: not at all 9. Thoughts that you would be better off or of hurting yourself in some way: not at all Total score: 0 Source: Developed by Drs. Vernon Rivera, Chang Morgan and colleagues, with an educational raymundo from [employer]. Thrive Questionnaire Date Thrive assessed: 05/20/25 I am a: Patient Within the past 12 months, did the food you bought not last and you didn't have the money to get more?: Never true Within the past 12 months, did you worry whether your food would run out before you got money to buy more?: Never true Do you have trouble paying for medicines?: No Do you have trouble getting transportation to medical appointments?: No Do you have trouble paying your heating and electricity bill?: No Do you have trouble taking care of your child, family member or friend?: No Do you have trouble with day-to-day activities such as bathing, preparing meals, shopping, managing finances, etc.?: No Are you currently unemployed and looking for a job?: No Are you interested in more education?: No THRIVE Score: 0 AUDIT C Alcohol Use Questionnaire (AUDIT-C) 1. How often do you have a drink containing alcohol?: Never 3. How often do you have six or more drinks on one occasion?: Never Total Score: 0 LANCE-7 AMB Questionnaire LANCE-7 Date LANCE - 7 assessed: 05/20/25 Feeling nervous, anxious, or on edge: 0 = Not at all Not being able to stop or control worryin = Not at all Worrying too much about different things: 0 = Not at all Trouble relaxin = Not at all Being so restless that it is hard to sit still: 0 = Not at all Becoming easily annoyed or irritable: 0 = Not at all Feeling afraid as if something awful might happen: 0 = Not at all Total LANCE-7 score (0-4 normal; 5-9 mild; 10-14 moderate; 15-21 severe): 0 Source: Developed by Drs. Vernon Rivera, Chang Morgan and colleagues, with an educational raymundo from [employer]. Physical exam (Primary Care) Vital Signs: Last Vital Signs Temp 97.0 F 05/20/25 08:48 Pulse 64 05/20/25 08:48 BP 142/84 H 05/20/25 08:48 BMI result Body Mass Index 30.3 Tobacco/Smoking Status: Tobacco use Status Tobacco use date assessed 05/20/25 05/20/25 08:49 Patient Tobacco Use Status Former Tobacco user 05/20/25 08:49 Tobacco use type Cigarette 05/20/25 08:49 e-Cigarette/Vaping Use Never Used 05/20/25 08:49 PHQ-9: PHQ-9 Score PHQ-9: Total score 0 05/20/25 09:00 Thrive Assessment: Date of Thrive Assessment Date Thrive assessed 05/20/25 05/20/25 08:49 Coding Level of Care Code Est Pt Level 4 (25355) Add On Problem Visit Only Diagnoses HTN (hypertension) I10 Prediabetes R73.03 Vitamin D deficiency E55.9 Asthma with COPD J44.89 Hair loss L65.9 Assessment & Plan Assessment & Plan (1) HTN (hypertension): Code(s): I10 - Essential (primary) hypertension Category: Medical Plan: Controlled with BP 138/88. Continue losartan 100 mg daily. Advised to take blood pressures at home prior to her visit. Low-sodium diet. (2) Prediabetes: Code(s): R73.03 - Prediabetes Category: Medical Plan: A1c has increased to 6.1%. Counseled on diabetic diet which will also help improve weight. We will recheck hemoglobin A1c at next visit. Weight loss efforts (3) Vitamin D deficiency: Code(s): E55.9 - Vitamin D deficiency, unspecified Category: Medical Plan: Advised to discontinue high-dose vitamin-D immediately. Check vitamin D now as well as calcium levels. (4) Asthma with COPD: Code(s): J44.89 - Other specified chronic obstructive pulmonary disease Category: Medical Plan: Commended on smoking cessation, quit a little over 1 year ago. Will add Advair for maintenance. Continue albuterol only as needed for shortness of breath and wheezing (5) Hair loss: Code(s): L65.9 - Nonscarring hair loss, unspecified Category: Medical Plan: Labs ordered as below Plan Follow-up in the office in 6 months with labs completed several days prior to visit. Orders: Orders IRON PROFILE Today E55.9 - Vitamin D deficiency, unspecified, I10 - Essential (primary) hypertension, L65.9 - Nonscarring hair loss, unspecified TSH reflex Free T4 Today E55.9 - Vitamin D deficiency, unspecified, I10 - Essential (primary) hypertension, L65.9 - Nonscarring hair loss, unspecified Vitamin D 25-OH Total Today E55.9 - Vitamin D deficiency, unspecified, I10 - Essential (primary) hypertension, L65.9 - Nonscarring hair loss, unspecified Lipid Panel 6 Months I10 - Essential (primary) hypertension, J44.89 - Other specified chronic obstructive pulmonary disease, R73.03 - Prediabetes DHEA Sulfate Today L65.9 - Nonscarring hair loss, unspecified Calcium Today E67.3 - Hypervitaminosis D Complete Blood Count Auto Diff Today E55.9 - Vitamin D deficiency, unspecified, I10 - Essential (primary) hypertension, L65.9 - Nonscarring hair loss, unspecified Vitamin B12 Today E55.9 - Vitamin D deficiency, unspecified, I10 - Essential (primary) hypertension, L65.9 - Nonscarring hair loss, unspecified Basic Metabolic Panel 6 Months I10 - Essential (primary) hypertension, J44.89 - Other specified chronic obstructive pulmonary disease, R73.03 - Prediabetes Hemoglobin A1c 6 Months I10 - Essential (primary) hypertension, J44.89 - Other specified chronic obstructive pulmonary disease, R73.03 - Prediabetes Medications: New famotidine 20 mg PO BID 180 tabs 0RF fluticasone propion-salmeterol 100-50 mcg/dose (Advair Diskus) 1 inh inhalation BID 60 ea 5RF Discontinued cholecalciferol (vitamin D3) Discontinued Reason: Doctor's Order 1,250 mcg PO QWEEK 12 caps 3RF
[2025-05-20 08:48] VITALS: BP 142/84; PULSE 64; TEMP 36.1; BMI 30.3
--- OUTSIDE RECORDS SUMMARY | 2025-05-20 09:08 | XMS_ITS | Patient Health Record ---
Author Organization [facility] Address [address] [place] [address] Care Team Providers Care Refractive Surgeon Name Role Phone Kassandra (RETIRED) Edilberto WILSON Primary Care Provide Mic Castle Jr Unavailable [phone] Reason For Referral No Information Medications Medication SIG (Take, Route, Frequency, Duration) Notes Start Date End Date Status Meclizine HCl Active Nabumetone Active Lisinopril Active Ipratropium [place] Active Triamcinolone Acetonide Active ProAir HFA Active ALPRAZolam Active Colyte with Flavor Packs 240 GM Solution Reconstituted As directed Orally Over the specified time.; Duration: 1 day(s) 07/29/2015 Active ibuprofen NEEDED Active Social History Social History Additional Details Category Social Info Options Details Miscellaneous: Marital status: single Occupation: SHIFT PRODUCTION SUPERVISOR Problems Problem Type SNOMED Code ICD Code Onset Dates Problem Status W/U Status Risk Notes Problem Colon cancer screening (353910187) Colon cancer screening (Z12.11) Active confirmed Problem termite control service representative current use of non-steroidal anti-inflammat ory drug ([id number]) termite control service representative current use of non-steroidal anti-inflammat ories (NSAID) (Z79.1) Active confirmed Plan Of Treatment Future Test Test Name Order Date COLONOSCOPY 07/29/2015 Insurance Providers Payer Name Payer Address Payer Phone Subscriber Number Group Number Insured Name Patient Relationship to Insured Coverage Start Date Coverage End Date [facility] [address] [facility] [phone] [id number] DARRIN CRUZ Self - patient is the insured Medical (General) History Medical History History ICD Code hypertension PANICH ATTACKS ARTHRITIS IN HIPS ASTHMA SINUS'S LEFT SIDE TENDENITIS BACK PAIN Surgical History Surgery Date(Month/Year) biopsy right breast 05/2014
--- OUTSIDE RECORDS SUMMARY | 2025-05-20 09:09 | XMS_ITS | Clinical Summary ---
Author Organization [email or web address] Address [address] [place] [address] Care Team Providers Care Electrical Prospecting Operator Name Role Phone Unavailable Primary Care Provider [...]
== END 2025-05-20 09:19 | disposition home or self-care (01) ==
LOC: HO.HMCHD 08:45
PROVIDERS: PCP Physician Assistant; Visit Provider Physician Assistant
DX: I10 Essential (primary) hypertension (principal); R73.03 Prediabetes; E55.9 Vitamin D deficiency, unspecified; J44.89 Other specified chronic obstructive pulmonary disease; L65.9 Nonscarring hair loss, unspecified

== ENCOUNTER → 2025-05-20 08:44 | Outpatient (BNVA) | payer OTHER, SELFPAY | PROVIDERS: PCP Internal Medicine; Visit Provider Physician Assistant | DX: I10 Essential (primary) hypertension (principal); R73.03 Prediabetes; E55.9 Vitamin D deficiency, unspecified; J44.89 Other specified chronic obstructive pulmonary disease; L65.9 Nonscarring hair loss, unspecified | CPT/HCPCS: 99212 ==

== ENCOUNTER 2025-05-20 09:27 | Outpatient (REF) | payer OTHER, SELFPAY ==
[2025-05-20 10:32] LABS: MANUAL DIFF FLAG NO
[2025-05-20 10:51] LABS: Hematocrit 44.0 % (37.0-47.0); Hemoglobin 14.1 g/dl (12.0-16.0); Imm Gran Abs Auto 0.03 X10*3/uL (0.00-0.03); Imm Gran Pct Auto 0.3 % (0.0-0.4); Lymphocytes Absolute Auto 3.6 X10*3/uL (1.2-4.9); Mean Corpuscular HGB Conc 32.0 g/dl (31.0-35.0); Mean Corpuscular Hemoglobin 28.6 pg (27.0-33.0); Mean Corpuscular Volume 89.2 fL (80.0-98.0); NRBC Abs Auto 0.000 X10*3/uL (0.0-0.012); NRBC Pct Auto 0.0 /100WBC (0.0-0.2); Platelet Count 286 X10*3/uL (160-400); Red Blood Count 4.93 X10*6/uL (4.20-5.50); White Blood Count 9.3 X10*3/uL (4.8-10.8)
[2025-05-20 13:50] LABS: Calcium 9.5 mg/dL (8.4-10.2); Iron 69 mcg/dL (30-160); Percent Iron Saturation 27 % (15-50); Total Iron Binding Capacity 259 mcg/dL (228-428); Unsaturated Iron Binding 190 ug/dL
[2025-05-20 14:10] LABS: Vitamin B12 399 pg/mL (200-900)
== END 2025-05-20 09:28 | disposition home or self-care (01) ==
LOC: HO.10HDL 09:27
PROVIDERS: Visit Provider Physician Assistant
DX: I10 Essential (primary) hypertension (principal); E67.3 Hypervitaminosis D; L65.9 Nonscarring hair loss, unspecified; E55.9 Vitamin D deficiency, unspecified
CPT/HCPCS: 36415; 82306; 82310; 82607; 82627; 83540; 84443; 85025